=== PATIENT | female | born 1955 | race Caucasian/White ===

== ENCOUNTER 2025-06-03 15:26 | Inpatient (IN) | payer MEDICARE, MEDICAID, SELFPAY ==
[2025-06-03] VITALS (10 sets, daily range): BP systolic 142–187; BP diastolic 79–130; PULSE 70–111; RESP 15–23; TEMP 36.4–36.7; O2SAT 95–99; BMI 33.8; BMI 34.4
--- NOTE | 2025-06-03 15:35 | EDNOTE_ITS ---
ED SOB =RME/HPI General Chief Complaint: Shortness of Breath/Dyspnea Stated Complaint: SOB X 5 days Time Seen by Provider: 06/03/25 15:34 Arrival date/time: 06/03/25 15:26 RME / HPI RME / HPI Narrative: See MDM for Dr. Jo's HPI documentation. Related Data Home Medications ?Medication ?Instructions ?Recorded ?Confirmed aspirin 81 mg tablet,delayed 81 mg PO QDAY 02/20/20 release (Aspir-) atorvastatin 40 mg tablet 20 mg PO QDAY 02/20/2002/19 docusate sodium 100 mg capsule 100 mg PO QDAY 02/20/20 02/20/20 furosemide 40 mg tablet 40 mg PO QDAY 02/20/2002/19 ipratropium 0.5 mg-albuterol 3 mg 3 ml inhalation QID 02/20/20 02/20/20 (2.5 mg base)/3 mL nebulization soln lisinopril 10 mg tablet 10 mg PO QDAY 02/20/2002/19 oxycodone-acetaminophen 5 mg-325 1 tab PO BID 02/20/20 02/20/20 mg tablet spironolactone 25 mg tablet 25 mg PO QDAY 02/20/20 topiramate 25 mg tablet 25 mg PO BID 02/20/20 Previous Rx's ?Medication ?Instructions ?Recorded cyclobenzaprine 5 mg tablet 5 mg PO BID #7 tabs Allergies Allergy/AdvReac Type Severity Reaction Status Date / Time Penicillins Allergy Swelling Verified 06/03/25 15:32 of Lip/Tongue/Throat Review of Systems Review of Systems Systems Reviewed: All systems reviewed, normal except as documented Past Medical History Past Medical History NEUROLOGIC: Positive Neurological Disorders, Cerebrovascular Accident and Transient Ischemic Attacks (TIA) CARDIAC: Positive Cardiac Disorders and Myocardial Infarction RESPIRATORY: Positive Chronic Obstructive Pulmonary Disease (COPD) MUSCULOSKELETAL: Positive Musculoskeletal Disorders Surgical History SURGICAL: Positive Coronary Stent Social History SMOKING STATUS: Former smoker ED Exam Narrative Physical exam: See [facility] for Dr. Jo's physical exam documentation. Course Quality Measures none Orders Category Date Time Status Admit to Inpatient Status Routine Admission 06/03/25 17:55 Active Patient Condition Routine Admission 06/03/25 17:55 Ordered Bedside COVID-19 Antigen Test NOW Care 06/03/25 15:36 Active COVID-19 Screening Questionnaire NOW Care 06/03/25 17:15 Active Continuous Pulse Oximetry QSHIFT Care 06/03/25 17:55 Completed Decision to Admit X1 Care 06/03/25 17:15 Completed EKG (ED ONLY) *Do not use* NOW Care 06/03/25 15:38 Completed Miscellaneous Nursing Order NOW Care 06/03/25 17:55 Active Notify provider NEEDED Care 06/03/25 17:55 Active Saline [Insert IV] NOW Care 06/03/25 15:36 Active Straight [In and Out Catheter] X1 Care 06/03/25 15:36 Active Referral Respiratory Therapy Stat Cons 06/03/25 15:37 Active Diet Cardiac Diet 06/04/25 Breakfast Active CA echo doppler complete Routine Exams 06/03/25 17:58 Ordered EKG (ED Only) Stat Exams 06/03/25 15:38 Draft XR chest 1V portable Stat Exams 06/03/25 15:38 Completed ABG [Arterial Blood Gas] Stat Lab 06/03/25 15:47 Completed BNP [B-Type Natriuretic Peptide] Stat Lab 06/03/25 16:00 Completed Bilirubin,Direct Stat Lab 06/03/25 16:00 Completed Blood Culture (Lab) Stat Lab 06/03/25 16:20 Results CBC AM DRAW Lab 06/04/25 04:50 Completed CBC AM DRAW Lab 06/05/25 05:00 Ordered CBC AM DRAW Lab 06/06/25 05:00 Ordered CBC AM DRAW Lab 06/07/25 05:00 Ordered CBC AM DRAW Lab 06/08/25 05:00 Ordered CBC AM DRAW Lab 06/09/25 05:00 Ordered CBC AM DRAW Lab 06/10/25 05:00 Ordered CBC Stat Lab 06/03/25 16:00 Completed CMP [Comprehensive Metabolic Panel] Stat Lab 06/03/25 16:00 Completed CRP [C-Reactive Protein] Stat Lab 06/03/25 16:00 Completed Comprehensive Metabolic Panel AM DRAW Lab 06/04/25 04:50 Completed Comprehensive Metabolic Panel AM DRAW Lab 06/05/25 05:00 Ordered Comprehensive Metabolic Panel AM DRAW Lab 06/06/25 05:00 Ordered Comprehensive Metabolic Panel AM DRAW Lab 06/07/25 05:00 Ordered Comprehensive Metabolic Panel AM DRAW Lab 06/08/25 05:00 Ordered Comprehensive Metabolic Panel AM DRAW Lab 06/09/25 05:00 Ordered Comprehensive Metabolic Panel AM DRAW Lab 06/10/25 05:00 Ordered D-Dimer Stat Lab 06/03/25 16:00 Completed ESR [Sed Rate (ESR)] Stat Lab 06/03/25 16:00 Completed Free T4 (Free Thyroxine) AM DRAW Lab 06/04/25 04:50 Completed Hemoglobin A1C [Glycohemoglobin w (eAG)] Stat Lab 06/03/25 16:00 Completed Influenza A & B Rapid Panel Stat Lab 06/03/25 16:50 Completed Lactate (Lactic Acid) Stat Lab 06/03/25 16:00 Completed Lipase Stat Lab 06/03/25 16:00 Completed Lipid Panel AM DRAW Lab 06/04/25 04:50 Completed Magnesium AM DRAW Lab 06/04/25 04:50 Completed Magnesium AM DRAW Lab 06/05/25 05:00 Ordered Magnesium AM DRAW Lab 06/06/25 05:00 Ordered Magnesium AM DRAW Lab 06/07/25 05:00 Ordered Magnesium AM DRAW Lab 06/08/25 05:00 Ordered Magnesium AM DRAW Lab 06/09/25 05:00 Ordered Magnesium AM DRAW Lab 06/10/25 05:00 Ordered Magnesium Stat Lab 06/03/25 16:00 Completed Partial Thromboplastin Time AM DRAW Lab 06/04/25 04:50 Completed Phosphorous AM DRAW Lab 06/04/25 04:50 Completed Procalcitonin Stat Lab 06/03/25 16:00 Completed Prothrombin Time with INR AM DRAW Lab 06/04/25 04:50 Completed TSH [Thyroid Stimulating Hormone] Stat Lab 06/03/25 16:00 Completed Troponin I Stat Lab 06/03/25 16:00 Completed UA, C/S IF [Urinalysis, C/S if Indicated] Stat Lab 06/03/25 06:18 Completed Acetaminophen Tab [Tylenol Tab] Med 06/03/25 17:55 Active 650 mg PO Q6H PRN Albuterol/Ipratr Rt Analisa [Duoneb Rt Analisa] Med 06/03/25 15:37 Discontinued 2.5 ml INH X1 ONE Albuterol/Ipratr Rt Analisa [Duoneb Rt Analisa] Med 06/03/25 15:45 Discontinued 3 ml INH X1 ONE Azithromycin Inj [Zithromax Inj] 500 mg Med 06/03/25 17:14 Discontinued Sodium Chloride 0.9% 250 ml [Ns] 250 ml IV X1 DiphenhydrAMINE INJ [Benadryl Inj] Med 06/03/25 15:37 Discontinued 50 mg IVP X1 STA Furosemide Inj [Lasix Inj] Med 06/03/25 16:12 Discontinued 80 mg IVP X1 ONE Levalbuterol Rt [Xopenex Rt Analisa] Med 06/03/25 15:37 Discontinued 3.75 mg INH X1 ONE Magnesium Sulfate 2 GM Ivpb [Magnesium Sulfate Ivpb] Med 06/03/25 15:37 Discontinued 2 gm in 50 ml IV X1 Magnesium Sulfate 2 GM Ivpb [Magnesium Sulfate Ivpb] Med 06/03/25 15:57 Discontinued 2 gm in 50 ml IV X1 MethylPREDNISolone.* [SoluMEDROL Inj] Med 06/03/25 15:37 Discontinued 250 mg IVP X1 ONE Metoprolol Tartrate [Lopressor] Med 06/03/25 15:47 Discontinued 25 mg PO X1 ONE Morphine* Inj Med 06/03/25 16:12 Discontinued 2 mg IV X1 ONE Ondansetron Inj [Zofran Inj] Med 06/03/25 17:55 Active 4 mg IVP Q6H PRN Senna [Senokot] Med 06/03/25 17:55 Discontinued 1 tab PO QDAY PRN Sodium Chloride Rt Analisa 0.9% [NS Rt Analisa 0.9%] Med 06/03/25 15:37 Active 9 ml INH PRN PRN cefTRIAXone/D5w 1gm IV premix [Rocephin/D5w 1gm IV Med 06/03/25 17:14 Discontinued premix] 1 gm in 50 ml IV X1 Code Status Routine Oth 06/03/25 17:55 Ordered BiPAP / CPAP NOW RT 06/03/25 15:36 Active Oxygen Delivery NOW RT 06/03/25 17:55 Active Vital Signs Vital signs: Vital Signs Pulse Rate 111 H 06/03/25 15:40 Respiratory Rate 23 H 06/03/25 15:40 Blood Pressure 164/117 H 06/03/25 15:40 Pulse Oximetry (%) 95 06/03/25 15:40 Oxygen Delivery Method Room Air 06/03/25 15:40 Pulse ox is 95% on room air which is adequate. Shortness of Breath / Dyspnea MDM Narrative MDM Narrative:: This section includes all my notes and documentations, including HPI, PE, and ED course. Amarjit Jo MD HPI: 70-year-old female here with about a week history of worsening cough, productive cough, purulent sputum, and dyspnea. Has COPD and CHF. No fever. No other complaints. ROS: All negative except as documented in HPI. Physical Exam: General: Alert and oriented. In severe respiratory distress. Hypoxia noted. Eyes: Conjunctivae and lids clear. ENT: No nasal congestion. Pharynx normal. Tympanic membrane normal bilaterally. Neck: Supple. No JVD. Heart: RRR. Lungs: In severe respiratory distress. Severely decreased air movement with diffuse wheezing. Abdomen: Soft and nontender. Legs: No clubbing, cyanosis, edema. Skin: Warm and dry. Neuro: Alert and oriented X 3. I reviewed all diagnostic test results: My interpretation of the EKG is: Sinus rhythm (66 bpm) with PVCs and nonspecific ST-T changes. My interpretation of the chest x-ray is: NAD. Blood tests and urine tests unremarkable. Covid/Influenza are negative. At this point, diagnoses include: Acute respiratory failure with hypoxia COPD exacerbation CHF Treatment here included: Solumedrol 250 mg IV DuoNeb X 1 Xopenex 7.5 mg neb treatment Benadryl 50 mg IV Magnesium 2 gram IV Lasix 80 mg IV Morphine 2 mg IV No significant improvement noted. I discussed the case with our hospitalist. About the presentation and exam and diagnostics and treatments here. And need of further care in the hospital. Will accept the patient. Amarjit Jo MD Patient data External records reviewed:: [facility] previous records Clinical information provided by:: patient Social determinants that could affect healthcare access:: none Patient has the following chronic illnesses:: COPD How is presenting disease/condition affected by chronic disease/condition?: exacerbated by Evaluation data The following diagnostics were reviewed and interpreted by me:: lab results, radiology exam(s) and EKG tracing(s) (My interpretation of the EKG is: Sinus tachycardia (66 bpm) with PVCs and nonspecific ST-T changes. Amarjit Jo MD) Lab and/or radiology exams considered but not ordered:: None Interpretation Summary: I reviewed all diagnostic test results: My interpretation of the EKG is: Sinus rhythm (66 bpm) with PVCs and nonspecific ST-T changes. My interpretation of the chest x-ray is: NAD. Blood tests and urine tests unremarkable. Covid/Influenza are negative. Medications / Prescriptions Medications or Prescriptions considered but not ordered:: None Medication administrations:: Medication Administration History Acetaminophen (Acetaminophen 325 Mg Tablet) 650 mg PO Q6H PRN PRN Reason: Fever >100.4 or pain Stop: 07/03/25 17:54 Last Admin: 06/04/25 13:34 Dose: 650 mg Documented By: KWAME Albuterol/Ipratropium (Albuterol/Ipratropium (Duoneb) Rt Analisa 3 Ml Nebu) 3 ml INH Q4HRRT PRN PRN Reason: SHORTNESS OF BREATH Stop: 07/04/25 18:59 Apixaban (Apixaban 2.5 Mg Tablet) 5 mg PO BID [facility] Stop: 06/24/25 20:59 Last Admin: 06/04/25 21:07 Dose: 5 mg Documented By: Admin: 06/04/25 09:11 Dose: 5 mg Documented By: Admin: 06/03/25 21:05 Dose: 5 mg Documented By: KEY Dextrose (Dextrose 50%-Water Inj 50 Ml Syringe) 25 ml IV Q15MIN PRN PRN Reason: BG 50-70 responsive npo pt Stop: 07/03/25 18:38 Dextrose (Dextrose 50%-Water Inj 50 Ml Syringe) 50 ml IV Q15MIN PRN PRN Reason: BG <50 OR BG <70 & pt unresponsive Stop: 07/03/25 18:38 Furosemide (Furosemide Inj 10 Mg/Ml Vial 2 Ml) 40 mg IVP QDAY [facility] Stop: 07/04/25 08:59 Last Admin: 06/04/25 09:10 Dose: 40 mg Documented By: KWAME Glucagon (Glucagon Inj 1 Mg Vial) 1 mg IM Q15MIN PRN PRN Reason: BG <70, and no IV access Hydralazine HCl (Hydralazine Inj 20 Mg/Ml Vial) 10 mg IVP Q2H PRN PRN Reason: SBP >180 or DSP >110 Stop: 07/03/25 18:44 Last Admin: 06/03/25 18:49 Dose: 10 mg Documented By: EF Azithromycin 500 mg/ Sodium (Chloride) 250 mls @ 250 mls/hr IV QDAY@1400 [facility] Stop: 06/11/25 13:59 Last Admin: 06/04/25 15:45 Dose: 250 mls/hr Documented By: KWAME Ceftriaxone Sodium/Dextrose (Rocephin/D5w 1gm Iv Premix) 1 gm in 50 mls @ 100 mls/hr IV QDAY [facility] Stop: 06/11/25 13:02 Last Admin: 06/04/25 13:34 Dose: 100 mls/hr Documented By: LH Insulin Human Lispro (Insulin Lispro (Admelog) 1 Unit/0.01 Ml Unit) 0 [address] [facility]; Protocol Stop: 07/04/25 07:29 Last Admin: 06/04/25 17:48 Dose: 2 unit Documented By: KWAME Co-signed By: ARIES Admin: 06/04/25 12:23 Dose: 4 unit Documented By: KWAME Co-signed By: PP Admin: 06/04/25 09:11 Dose: 1 unit Documented By: KWAME Co-signed By: ARIES Methylprednisolone Sodium Succinate (Methylprednisolone Sod Succ 40 Mg/Ml Vial) 40 mg IVP TID [facility] Stop: 06/11/25 13:59 Last Admin: 06/04/25 21:07 Dose: 40 mg Documented By: Admin: 06/04/25 15:44 Dose: 40 mg Documented By: KWAME Nifedipine (Nifedipine Xl 30 Mg Tabcr) 30 mg PO QDAY [facility] Stop: 07/04/25 08:59 Last Admin: 06/04/25 09:10 Dose: 30 mg Documented By: KWAME Ondansetron HCl (Ondansetron Inj 2 Mg/Ml Inj 2 Ml) 4 mg IVP Q6H PRN; Protocol PRN Reason: NAUSEA OR VOMITING Stop: 07/03/25 17:54 Pantoprazole Sodium (Pantoprazole Inj 40 Mg Vial) 40 mg IVP QDAY [facility] Stop: 07/04/25 08:59 Last Admin: 06/04/25 09:11 Dose: 40 mg Documented By: KWAME Sennosides (Senna/Docusate Sod 1 Tab Tablet) 1 tab PO QDAY PRN; Protocol PRN Reason: CONSTIPATION Stop: 07/05/25 08:59 Sodium Chloride (Sodium Chloride Rt Analisa 0.9% 3 Ml Nebu) 9 ml INH PRN PRN PRN Reason: SOLN Stop: 07/03/25 15:36 Discontinued Medications Albuterol/Ipratropium (Albuterol/Ipratropium (Duoneb) Rt Analisa 3 Ml Nebu) 2.5 ml INH X1 ONE Stop: 06/03/25 15:38 Last Admin: 06/03/25 16:51 Dose: 2.5 ml Documented By: YONY Albuterol/Ipratropium (Albuterol/Ipratropium (Duoneb) Rt Analisa 3 Ml Nebu) 3 ml INH X1 ONE Stop: 06/03/25 15:46 Last Admin: 06/03/25 16:55 Dose: Not Given Documented By: YONY Non-Admin Reason: MD ordered Wrong Albuterol/Ipratropium (Albuterol/Ipratropium (Duoneb) Rt Analisa 3 Ml Nebu) 3 ml INH Q6HRRT KELSEY Stop: 07/03/25 18:59 Albuterol/Ipratropium (Albuterol/Ipratropium (Duoneb) Rt Analisa 3 Ml Nebu) 3 ml INH Q2HR PRN PRN Reason: SHORTNESS OF BREATH OR WHEEZE Stop: 07/03/25 18:00 Albuterol/Ipratropium (Albuterol/Ipratropium (Duoneb) Rt Analisa 3 Ml Nebu) 3 ml INH Q4HRRT KELSEY Stop: 07/03/25 18:59 Last Admin: 06/04/25 17:34 Dose: Not Given Documented By: DELIO Non-Admin Reason: Discontinued Admin: 06/04/25 11:39 Dose: 3 ml Documented By: Admin: 06/04/25 06:54 Dose: 3 ml Documented By: Admin: 06/04/25 03:15 Dose: Not Given Documented By: DELIO Non-Admin Reason: Patient Refused Admin: 06/04/25 00:55 Dose: Not Given Documented By: DELIO Non-Admin Reason: Patient Refused Admin: 06/03/25 18:57 Dose: 3 ml Documented By: DELIO Diphenhydramine HCl (Diphenhydramine Inj 50 Mg/Ml Vial) 50 mg IVP X1 STA Stop: 06/03/25 15:38 Last Admin: 06/03/25 16:00 Dose: 50 mg Documented By: EF Furosemide (Furosemide Inj 10 Mg/Ml 4ml Vial) 80 mg IVP X1 ONE Stop: 06/03/25 16:13 Last Admin: 06/03/25 16:38 Dose: 80 mg Documented By: EF Furosemide (Furosemide Inj 10 Mg/Ml Vial 2 Ml) 40 mg IVP BIDD [facility] Stop: 07/04/25 05:59 Magnesium Sulfate (Magnesium Sulfate Ivpb) 2 gm in 50 mls @ 25 mls/hr IV X1 ONE Stop: 06/03/25 17:36 Last Admin: 06/03/25 15:59 Dose: Not Given Documented By: EF Non-Admin Reason: Cancelled by Provider Magnesium Sulfate (Magnesium Sulfate Ivpb) 2 gm in 50 mls @ 150 mls/hr IV X1 ONE Stop: 06/03/25 16:16 Last Infusion: 06/03/25 16:20 Dose: Infused Documented By: Admin: 06/03/25 16:00 Dose: 150 mls/hr Documented By: EF Azithromycin 500 mg/ Sodium (Chloride) 250 mls @ 250 mls/hr IV X1 ONE Stop: 06/03/25 18:13 Last Infusion: 06/03/25 18:44 Dose: Infused Documented By: Admin: 06/03/25 17:32 Dose: 250 mls/hr Documented By: EF Ceftriaxone Sodium/Dextrose (Rocephin/D5w 1gm Iv Premix) 1 gm in 50 mls @ 100 mls/hr IV X1 ONE Stop: 06/03/25 17:43 Last Infusion: 06/03/25 18:02 Dose: Infused Documented By: Admin: 06/03/25 17:32 Dose: 100 mls/hr Documented By: EF Lactated Ringer's (Lactated Ringers) 500 mls @ 75 mls/hr IV .Q6H40M [facility] Stop: 06/04/25 05:09 Last Admin: 06/03/25 22:50 Dose: 75 mls/hr Documented By: CG Influenza Virus Vaccine Quadrival (Influenza Virus 0.5 Ml Syringe ) 0.5 ml IMi .ONCE ONE Stop: 06/04/25 10:01 Labetalol HCl (Labetalol Inj 5 Mg/Ml Vial 20 Ml) 10 mg IVP Q2H PRN PRN Reason: SBP >180 Stop: 07/03/25 18:14 Lactulose (Lactulose Syrup 20 Gm/30 Ml Udc) 30 gm PO X1 ONE; Protocol Stop: 06/04/25 11:18 Last Admin: 06/04/25 12:23 Dose: 30 gm Documented By: LH Levalbuterol HCl (Levalbuterol Rt 1.25 Mg/0.5 Ml Nebu) 3.75 mg INH X1 ONE Stop: 06/03/25 15:38 Last Admin: 06/03/25 16:50 Dose: 3.75 mg Documented By: BA Methylprednisolone Sodium Succinate (Methylprednisolone Sod Succ 62.5 Mg/Ml 2ml Vial) 250 mg IVP X1 ONE Stop: 06/03/25 15:38 Last Admin: 06/03/25 16:00 Dose: 250 mg Documented By: EF Methylprednisolone Sodium Succinate (Methylprednisolone Sod Succ 40 Mg/Ml Vial) 40 mg IVP BID [facility] Stop: 06/10/25 20:59 Last Admin: 06/04/25 09:08 Dose: 40 mg Documented By: Admin: 06/03/25 21:05 Dose: 40 mg Documented By: BD Metoprolol Tartrate (Metoprolol Tartrate 25 Mg Tablet) 25 mg PO X1 ONE Stop: 06/03/25 15:48 Last Admin: 06/03/25 16:38 Dose: 25 mg Documented By: EF Morphine Sulfate (Morphine Sulf Inj 4 Mg/Ml Vial) 2 mg IV X1 ONE Stop: 06/03/25 16:13 Last Admin: 06/03/25 16:39 Dose: 2 mg Documented By: EF Potassium Chloride (Potassium Chloride 20 Meq Tabcr) 40 meq PO X1 ONE Stop: 06/04/25 08:55 Last Admin: 06/04/25 09:11 Dose: 40 meq Documented By: LH Potassium Chloride (Potassium Chloride 20 Meq Tabcr) 40 meq PO X1 ONE Stop: 06/04/25 17:21 Last Admin: 06/04/25 17:48 Dose: 40 meq Documented By: LH Prednisone (Prednisone 20 Mg Tablet) 40 mg PO QDAY [facility] Stop: 06/10/25 18:03 Sacubitril/Valsartan (Sacubitril 24 Mg/Valsartan 26 Mg Tablet) 1 tab PO BID [facility] Stop: 07/03/25 20:59 Sennosides (Senna Tablet) 1 tab PO QDAY PRN; Protocol PRN Reason: constipation Stop: 07/03/25 17:54 Treatment here included: Solumedrol 250 mg IV DuoNeb X 1 Xopenex 7.5 mg neb treatment Benadryl 50 mg IV Magnesium 2 gram IV Lasix 80 mg IV Morphine 2 mg IV Consultations Consultation(s) initiated? (list below): Yes Consultation #1 (Physician, Specialty, Details): I discussed the case with our hospitalist. About the presentation and exam and diagnostics and treatments here. And need of further care in the hospital. Will accept the patient. Diagnosis Shortness of Breath Differential Diagnosis: acute exacerbation of chronic obstructive airways disease, congestive heart failure and community acquired pneumonia Most likely diagnosis given after review of the tests above:: Acute respiratory failure COPD exacerbation CHF Admission Indicated Admission indicated?: indicated Explain why admission is indicated or not indicated:: Acute respiratory failure COPD exacerbation CHF Admission Request Was there a request for admission?: Yes Admission Attestation Admission request attestation: Discussed case with Hospitalist service regarding admission. Discussed patients ED course, exam findings, labs, and radiology results. Agreed to accept the patient for admission. Disposition Plan Disposition Plan: Admit Discharge Plan Plan Patient Disposition: Admit Acute Care w/in Hospital Problem List Clinical Impression: Acute respiratory failure with hypoxia, COPD exacerbation, CHF (congestive heart failure)
--- NOTE | 2025-06-03 15:38 | EKG_ITS ---
[facility] Test Date: 2025-06-03 Pat Name: ALLISON WALLER Department: Room: - Gender: Female Behavioral [facility] Rn: : 1955 Requested By: Amarjit Agudelo Order Number: [id number] Reading MD: Amarjit Agudelo Measurements Intervals [place] Rate: 113 P: 55 ID: [id number] QRS: 11 QRSD: 127 T: 190 QT: 330 QTc: 453 Interpretive Statements SINUS TACHYCARDIA WITH OCCASIONAL VENTRICULAR PREMATURE COMPLEXES MODERATE INTRAVENTRICULAR CONDUCTION DELAY [105+ ms QRS DURATION, 80+ ms Q/S IN V1/V2, NO Q AND 60+ ms R IN I/aVL/V5/V6] ST DEVIATION AND MODERATE T-WAVE ABNORMALITY, CONSIDER LATERAL ISCHEMIA [-0.1+ mV T-WAVE IN I/aVL/V5/V6] ST DEVIATION AND MODERATE T-WAVE ABNORMALITY, CONSIDER INFERIOR ISCHEMIA [-0.1+ mV T-WAVE IN II/aVF] Compared to ECG 02/20/2020 15:10:54 Ventricular premature complex(es) now present Sinus bradycardia no longer present T-wave abnormality still present Possible ischemia still present /store/S0/[id number]/ecg/[id number].pdf
--- NOTE | 2025-06-03 15:38 | XR_ITS ---
Examination: AP chest single view TECHNIQUE: AP portable upright chest single view Date and time: June 03, 2025, 1547 hours INDICATIONS: Shortness of breath chest pain today. FINDINGS: Mild enlargement cardiac contour Ectatic thoracic aorta. No pneumonia or pulmonary edema IMPRESSION: No active disease
[2025-06-03 15:54] LABS: Base Excess -1 (-3-3); HCO3 23 mEq/L (20-26); Inspired Oxygen, FIO2 21 %; O2 Saturation 95 % (91-98); PCO2 35 mmHg (32.0-48.0); PO2 70 mmHg (83-108); pH, Arterial 7.42 (7.35-7.45)
[2025-06-03] MEDS: MethylPREDNISolone SOD SUCC 62.5 MG/ML 2ML VIAL 250 MG IVP (16:00)
[2025-06-03] MEDS: Magnesium Sulfate 2 GM Ivpb 2 GM/50 ML BAG IV (16:00)
[2025-06-03 16:12] LABS: Allen Test Performed/OK; Puncture Site Right Radial
[2025-06-03 16:15] LABS: Lactate (Lactic Acid) 2.7 mMol/L (0.4-2.0)
[2025-06-03 16:21] LABS: Sed Rate (ESR) 29 mm/hr (0-30)
[2025-06-03 16:24] LABS: Basophils # (Auto) 0.1 Thou/mm3 (0.0-0.2); Basophils % (Auto) 1 % (0-2.5); Eosinophils # (Auto) 0.2 Thou/mm3 (0.0-0.5); Eosinophils % (Auto) 3 % (0-10); Hematocrit 47.3 % (36.0-46.0); Hemoglobin 16.3 g/dL (12.0-16.0); Immature Granulocytes Auto 0.01 Thou/mm3 (0.00-0.00); Lymphocytes # (Auto) 2.2 Thou/mm3 (1.0-4.8); Lymphocytes % (Auto) 30 % (10-50); Mean Corpuscular HGB Conc 34.5 g/dl (31.0-37.0); Mean Corpuscular Hemoglobin 32.2 pg (25.0-35.0); Mean Corpuscular Volume 94 fL (80-100); Monocytes # (Auto) 0.6 Thou/mm3 (0.0-0.8); Monocytes % (Auto) 8 % (0-12); Neutrophils # (Auto) 4.2 Thou/mm3 (1.8-7.7); Neutrophils % (Auto) 58 % (37-80); Nucleated Red Blood Cell # 0.00 Thou/mm3 (0.00-0.00); Nucleated Red Blood Cell % 0 /100 WBC (0); Platelet Count 319 Thou/mm3 (140-440); RDW Standard Deviation 44.3 fL (36.4-46.3); Red Blood Count 5.06 Miln/mm3 (4.00-5.20); White Blood Count 7.2 Thou/mm3 (3.6-11.0)
[2025-06-03] MEDS: FUROSEMIDE INJ 10 MG/ML 4ML VIAL 80 MG IVP (16:38)
[2025-06-03] MEDS: METOPROLOL TARTRATE 25 MG TABLET PO (16:38)
[2025-06-03] MEDS: MORPHINE SULF INJ 4 MG/ML VIAL 2 MG IV (16:39)
[2025-06-03 16:40] LABS: Glucose Estimated Average 103 mg/dL (80-131); Hemoglobin A1C 5.2 % Hgb (4.8-6.0)
[2025-06-03 16:49] LABS: D-Dimer 470 ng/mL (<600)
[2025-06-03] MEDS: LEVALBUTEROL RT 1.25 MG/0.5 ML NEBU 3.75 MG INH (16:50)
[2025-06-03] MEDS: ALBUTEROL/IPRATROPIUM (Duoneb) RT SOL 3 ML NEBU 2.5 ML INH (16:51)
[2025-06-03 17:02] LABS: B-Type Natriuretic Peptide 142 pg/mL (0-100)
[2025-06-03 17:07] LABS: Alanine Aminotransferase 8 U/L (10-49); Albumin, Serum 5.1 gm/dL (3.4-4.8); Albumin/Globulin Ratio 2.0 (1.2-2.2); Alkaline Phosphatase 112 U/L (46-116); Anion Gap 15 (7-16); Aspartate Amino Transferase 19 U/L (0-34); BUN/Creatinine Ratio 11 Ratio (12-20); Bilirubin,Direct 0.2 mg/dL (0.0-0.3); Bilirubin,Total 0.6 mg/dL (0.3-1.2); Blood Urea Nitrogen 28 mg/dL (9-23); C-Reactive Protein 2.9 mg/dL (0.0-0.9); Calcium 9.9 mg/dL (8.3-10.6); Calcium (Corrected) 9.9 mg/dL (8.5-10.1); Carbon Dioxide 21.7 mMol/L (20.0-31.0); Chloride 103 mMol/L (98-107); Creatinine (Component) 2.5 mg/dL (0.6-1.3); Estimated Creatinine Clearance 21.0 mL/min (>60); Globulin 2.5 gm/dL (2.3-3.5); Glucose 226 mg/dL (74-106); Lipase 34 U/L (12-53); Magnesium 2.0 mg/dL (1.6-2.6); Osmolality,Calculated 291 (275-295); Potassium 3.4 mMol/L (3.4-5.1); Procalcitonin 0.17 ng/ml (0.0-0.49); Sodium 140 mMol/L (136-145); Thyroid Stimulating Hormone 2.12 uIU/mL (0.55-4.78); Total Protein 7.6 gm/dL (5.7-8.2); Troponin I < 0.020 ng/mL (0.0-0.045); eGFR 20 See Note
[2025-06-03 17:16] LABS: Influenza A Ag Negative; Influenza B Ag Negative
[2025-06-03] MEDS: AZITHROMYCIN INJ 500 MG in SODIUM CHLORIDE 0.9% 250 ML 250 ML 250 MG IV (17:32)
[2025-06-03] MEDS: cefTRIAXone/D5w 1gm IV premix 1 GM/50 ML BAG IV (17:32)
--- NOTE | 2025-06-03 17:58 | ECHO_ITS ---
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 - Primary Location: S3SX Left Ventricular Outflow Tract Name Value Normal LVOT 2D LVOT Diameter 1.5 cm LVOT Doppler LVOT Peak Velocity 84 cm/s LVOT Mean Gradient 1 mmHg LVOT VTI 15 cm LVOT VTI/AV VTI Ratio 0.7 LVOT Stroke Volume 26 ml Mitral Valve Name Value Normal MV Doppler MV Decel Cooke 320 cm/s2 MV PHT 69 ms MV Area (PHT) 3.2 cm2 4.0-5.0 MV Diastolic Function MV E Peak Velocity 77 cm/s MV A Peak Velocity 101 cm/s MV E/A 0.8 MV Annular TDI MV Septal e' Velocity 5.2 cm/s MV E/e' (Septal) 14.7 MV Lateral e' Velocity 3.9 cm/s MV E/e' (Lateral) 19.5 MV e' Average 4.57 cm/s MV E/e' (Average) 17.1 Tricuspid Valve Name Value Normal TV Annular TDI TV Lateral Keely s' Velocity 9.8 cm/s >=9.5 Aortic Valve Name Value Normal AV Doppler AV Peak Velocity 108 cm/s AV Mean Gradient 2 mmHg AV VTI 21 cm AV Area (Cont Eq VTI) 1.2 cm2 >=3.0 AV Area (Cont Eq Marvin) 1.4 cm2 AV DI (Marvin) 0.77 AV Regurgitation 2D LVOT Area 1.8 cm2 Ventricles Name Value Normal LV Dimensions 2D/MM IVS Diastolic Thickness (2D) 0.7 cm 0.6-0.9 LVID Diastole (2D) 5.2 cm 3.8-5.2 LVIW Diastolic Thickness (2D) 1.0 cm 0.6-0.9 LVID Systole (2D) 4.5 cm 2.2-3.5 LVOT Diameter 1.5 cm LV Mass (2D Cubed) 156.93 g 67.00-162.00 LV Mass Index (2D Cubed) 80 g/m2 43-95 Relative Wall Thickness (2D) 0.38 <=0.42 IVS/LVIW Diastolic Thickness (2D) 0.70 0.00-1.50 LV Fractional Shortening/Ejection Fraction 2D/MM LV Fractional Shortening (2D) 13 % 27-45 LV EF (2D Teichholz) 29 % LV Diastolic Volume (4C MOD) 83 ml LV EF (4C MOD) 31 % LV Diastolic Volume (2C MOD) 117 ml LV EF (2C MOD) 17 % LV Diastolic Volume (BP MOD) 109 ml 46-106 LV Diastolic Volume Index (BP MOD) 56 ml/m2 29-61 LV Systolic Volume (BP MOD) 77 ml 14-42 LV Systolic Volume Index (BP MOD) 39 ml/m2 8-24 LV EF (BP MOD) 29 % 54-74 LV Diastolic Length (4C) 5.8 cm LV Systolic Length (4C) 5.6 cm LV Stroke Volume (4C MOD) 25 ml RV Dimensions 2D/MM TV Lateral Keely s' Velocity 9.8 cm/s >=9.5 Atria Name Value Normal LA Dimensions LA Volume (4C A-L) 40 ml LA Volume (BP A-L) 39 ml Left Ventricle Left ventricular chamber dimension is mildly enlarged. Left ventricular systolic function is moderately reduced with an ejection fraction by Biplane Method of Discs of 29 %. There is normal geometry noted in the left ventricle. Left ventricular segmental wall motion is normal. There is indeterminate diastolic function in the left ventricle. Right Ventricle Right ventricular chamber dimension is normal. Right ventricular systolic function is normal. Left Atrium Left atrial chamber dimension is normal. Right Atrium Right atrial chamber dimension is normal. Aortic Valve There is no aortic valve sclerosis. There is no aortic valve stenosis with a peak velocity of 108 cm/s, mean gradient of 2 mmHg, and aortic valve area of 1.2 cm2. There is no aortic valve regurgitation. The aortic valve was not clearly visualized. Pulmonic Valve The pulmonic valve is normal. There is no pulmonic valve stenosis. There is no pulmonic regurgitation. Mitral Valve The mitral valve has normal leaflets. There is no mitral valve stenosis. There is trace mitral valve regurgitation. Tricuspid Valve The tricuspid valve leaflets are normal. There is no tricuspid valve stenosis. There is trace tricuspid valve regurgitation. Unable to estimate pulmonary artery systolic pressure due to inadequate tricuspid regurgitant envelope. Pericardium/Pleural The pericardium appears normal. There is no pericardial effusion. No pleural effusion visualized. Aorta The aortic measurements are indexed to age and body surface area. Summary 1. Left ventricle size is mildly enlarged and systolic function is moderately reduced. Estimated ejection fraction is 35-40%. There is indeterminate diastolic function. There is normal geometry noted. 2. Normal right ventricular size and function. 3. There is trace mitral valve regurgitation. 4. There is trace tricuspid valve regurgitation. Report Signatures Finalized by Anish Mckee on 06/05/2025 02:26 PM
--- NOTE | 2025-06-03 18:11 | PD.RESHP ---
Documentation for date of: 06/03/25 Senior resident attestation: Patient evaluated and examined at the bedside, plan of care discussed with rest of the team including my attending physician, except as noted. Pt is a 75-year-old female with a past medical history of CAD s/p stents, COPD, CHF, CKD, hypertension, history of pulmonary embolism and DVT on Eliquis, who presents to the ER with acute respiratory distress, patient reported she had been having dyspnea for the past 4 to 5 days, [place], but came in when shortness of breath became unbearable. 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 Patient endorses gradual worsening shortness of breath to the point where she felt as if she was gasping for air, prompting current ED admission. Patient reports that she has had COPD exacerbations before however remote and does not use any rescue inhalers or daily inhalers. Patient also endorses central chest tightness rated 6/10 that started 3 days ago, nonradiating dull constant pain, along with bilateral rib pain when coughing or taking deep breaths. Patient reports has history of heart failure last echo done 8 years ago in [place], can only recall taking Entresto as one of her heart medications. Endorses PND for the past few days, denies dyspnea on exertion, orthopnea or PND prior to current ED visit. Sees Dr. Whaley, product technician in [place] within this year. Patient reports numerous DVTs and PEs over the course of her lifetime and states she likely has some genetic clotting issue as her son and her mother have clotting issues. Denies any recent illness, diarrhea, urinary symptoms, nausea/vomiting, fever/chills or abdominal pain. Reports has been constipated for the past 4 days which is unusual for her. PMHx: as above Surgical Hx: Hysterectomy 1998, C2-C5 surgery FHx: Mother clotting issues, from CHF, 3 uncles from cardiac arrest Social Hx: 30 PPD smoker, 60 years half a pack a day quit 1 week ago. Denies alcohol use. Remote illicit drug use, only smoking no IV drug use. At baseline IADL walks without walker[place] Allergies: Penicillin, swelling of lips Medications: Per med rec, instructed to bring medication list In ED, BP 164/117, HR 111, RR 23, afebrile, saturating 95% 3L. Significant labs include hemoglobin 16.3, ABG 7.4 /70/23, BUN 28, creatinine 2.5, GFR 20, A1c 5.2, lactic acid 2.7, tropes negative, CRP 2.9, BNP 142. In ED, given magnesium, Methylpred to 50 mg x 1, metoprolol to tartrate 25 mg x 1, furosemide 80 mg x 1, morphine 2 mg x 1, DuoNeb and levalbuterol x 1 each, azithromycin x 1 and ceftriaxone x 1. EKG shows sinus tachycardia with occasional PVCs rate 113 QTc 453. CXR read pending. Patient was admitted for COPD and CHF exacerbation. Review of Systems Review of Systems Systems Reviewed: All systems reviewed, normal except as documented Exam Vital Signs Temp Pulse Resp BP Pulse Ox O2 Del Method O2 Flow Rate 97.8 F 93 15 178/108 H 97 Nasal Cannula 3 06/03/25 18:00 06/03/25 18:00 06/03/25 18:00 06/03/25 18:00 06/03/25 18:00 06/03/25 18:00 06/03/25 18:00 Narrative Exam GENERAL: AOx3, no acute distress HEENT: mucous membranes dry, bilateral sclera anicteric CARDIOVASCULAR: regular rate and rhythm, S1/S2 present, no murmurs appreciated PULMONARY: Diffuse wheezing bilaterally, wet crackles at bilateral bases ABDOMINAL: soft, non-tender, non-distended, no rebound/guarding, bowel sounds present EXTREMITIES: no peripheral edema SKIN: warm and dry, intact, no rashes NEURO: CN II-XII grossly intact, no focal deficits, alert, following commands Results: Labs 06/03/25 16:00 06/03/25 16:00 Labs: Short CBC 06/03/25 Range/Units 16:00 WBC 7.2 (3.6-11.0) Thou/mm3 Hgb 16.3 H (12.0-16.0) g/dL Hct 47.3 H (36.0-46.0) % Plt Count 319 (140-440) Thou/mm3 BMP 06/03/25 16:00 Sodium 140 Potassium 3.4 Chloride 103 Carbon Dioxide 21.7 BUN 28 H Creatinine 2.5 H Glucose 226 H Calcium 9.9 Cardiac Enzymes 06/03/25 Range/Units 16:00 Troponin I < 0.020 (0.0-0.045) ng/mL Liver Function 06/03/25 Range/Units 16:00 Total Bilirubin 0.6 (0.3-1.2) mg/dL Direct Bilirubin 0.2 (0.0-0.3) mg/dL AST 19 (0-34) U/L ALT 8 L (10-49) U/L Alkaline Phosphatase 112 (46-116) U/L Albumin 5.1 H (3.4-4.8) gm/dL ABG Interpretation ABG results: 06/03/25 15:47 ABG pH 7.42 ABG pCO2 35 ABG pO2 70 L ABG HCO3 23 ABG O2 Saturation 95 ABG Base Excess -1 Quality Measures Quality Measures none Advance care planning discussed with:: patient Medications Home Medications and Allergies Home Medications ?Medication ?Instructions ?Recorded ?Confirmed ?Type aspirin 81 mg tablet,delayed 81 mg PO QDAY 02/20/20 02/20/20 History release (Aspir-) atorvastatin 40 mg tablet 20 mg PO QDAY 02/20/20 02/20/20 History docusate sodium 100 mg capsule 100 mg PO QDAY 02/20/20 02/20/20 History furosemide 40 mg tablet 40 mg PO QDAY 02/20/20 02/20/20 History ipratropium 0.5 mg-albuterol 3 mg 3 ml inhalation QID 02/20/20 02/20/20 History (2.5 mg base)/3 mL nebulization soln lisinopril 10 mg tablet 10 mg PO QDAY 02/20/20 02/20/20 History oxycodone-acetaminophen 5 mg-325 1 tab PO BID 02/20/20 02/20/20 History mg tablet spironolactone 25 mg tablet 25 mg PO QDAY 02/20/20 02/20/20 History topiramate 25 mg tablet 25 mg PO BID 02/20/20 02/20/20 History Allergies Allergy/AdvReac Type Severity Reaction Status Date / Time Penicillins Allergy Swelling Verified 06/03/25 15:32 of Lip/Tongue/Throat Visit Medications Acetaminophen (Acetaminophen 325 Mg Tablet) 650 mg PO Q6H PRN PRN Reason: Fever >100.4 or pain Stop: 07/03/25 17:54 Albuterol/Ipratropium (Albuterol/Ipratropium (Duoneb) Rt Analisa 3 Ml Nebu) 3 ml INH Q6HRRT KELSEY Stop: 07/03/25 18:59 Albuterol/Ipratropium (Albuterol/Ipratropium (Duoneb) Rt Analisa 3 Ml Nebu) 3 ml INH Q2HR PRN PRN Reason: SHORTNESS OF BREATH OR WHEEZE Stop: 07/03/25 18:00 Apixaban (Apixaban 2.5 Mg Tablet) 5 mg PO BID [facility] Stop: 06/24/25 20:59 Furosemide (Furosemide Inj 10 Mg/Ml Vial 2 Ml) 40 mg IVP BIDD [facility] Stop: 07/04/25 05:59 Azithromycin 500 mg/ Sodium (Chloride) 250 mls @ 250 mls/hr IV X1 ONE Stop: 06/03/25 18:13 Last Admin: 06/03/25 17:32 Dose: 250 mls/hr Labetalol HCl (Labetalol Inj 5 Mg/Ml Vial 20 Ml) 10 mg IVP Q2H PRN PRN Reason: SBP >180 Stop: 07/03/25 18:14 Ondansetron HCl (Ondansetron Inj 2 Mg/Ml Inj 2 Ml) 4 mg IVP Q6H PRN; Protocol PRN Reason: NAUSEA OR VOMITING Stop: 07/03/25 17:54 Prednisone (Prednisone 20 Mg Tablet) 40 mg PO QDAY [facility] Stop: 06/10/25 18:03 Sacubitril/Valsartan (Sacubitril 24 Mg/Valsartan 26 Mg Tablet) 1 tab PO BID [facility] Stop: 07/03/25 20:59 Sennosides (Senna Tablet) 1 tab PO QDAY PRN; Protocol PRN Reason: constipation Stop: 07/03/25 17:54 Sodium Chloride (Sodium Chloride Rt Analisa 0.9% 3 Ml Nebu) 9 ml INH PRN PRN PRN Reason: SOLN Stop: 07/03/25 15:36 Discontinued Medications Albuterol/Ipratropium (Albuterol/Ipratropium (Duoneb) Rt Analisa 3 Ml Nebu) 2.5 ml INH X1 ONE Stop: 06/03/25 15:38 Last Admin: 06/03/25 16:51 Dose: 2.5 ml Albuterol/Ipratropium (Albuterol/Ipratropium (Duoneb) Rt Analisa 3 Ml Nebu) 3 ml INH X1 ONE Stop: 06/03/25 15:46 Last Admin: 06/03/25 16:55 Dose: Not Given Diphenhydramine HCl (Diphenhydramine Inj 50 Mg/Ml Vial) 50 mg IVP X1 STA Stop: 06/03/25 15:38 Last Admin: 06/03/25 16:00 Dose: 50 mg Furosemide (Furosemide Inj 10 Mg/Ml 4ml Vial) 80 mg IVP X1 ONE Stop: 06/03/25 16:13 Last Admin: 06/03/25 16:38 Dose: 80 mg Magnesium Sulfate (Magnesium Sulfate Ivpb) 2 gm in 50 mls @ 25 mls/hr IV X1 ONE Stop: 06/03/25 17:36 Last Admin: 06/03/25 15:59 Dose: Not Given Magnesium Sulfate (Magnesium Sulfate Ivpb) 2 gm in 50 mls @ 150 mls/hr IV X1 ONE Stop: 06/03/25 16:16 Last Infusion: 06/03/25 16:20 Dose: Infused Ceftriaxone Sodium/Dextrose (Rocephin/D5w 1gm Iv Premix) 1 gm in 50 mls @ 100 mls/hr IV X1 ONE Stop: 06/03/25 17:43 Last Admin: 06/03/25 17:32 Dose: 100 mls/hr Levalbuterol HCl (Levalbuterol Rt 1.25 Mg/0.5 Ml Nebu) 3.75 mg INH X1 ONE Stop: 06/03/25 15:38 Last Admin: 06/03/25 16:50 Dose: 3.75 mg Methylprednisolone Sodium Succinate (Methylprednisolone Sod Succ 62.5 Mg/Ml 2ml Vial) 250 mg IVP X1 ONE Stop: 06/03/25 15:38 Last Admin: 06/03/25 16:00 Dose: 250 mg Metoprolol Tartrate (Metoprolol Tartrate 25 Mg Tablet) 25 mg PO X1 ONE Stop: 06/03/25 15:48 Last Admin: 06/03/25 16:38 Dose: 25 mg Morphine Sulfate (Morphine Sulf Inj 4 Mg/Ml Vial) 2 mg IV X1 ONE Stop: 06/03/25 16:13 Last Admin: 06/03/25 16:39 Dose: 2 mg Assessment & Plan Plan Augusto Galvan 70F pmhx significant for CKD, heart failure unknown EF, CVA 2014 with no residual deficits, CAD s/p 3 stents in HTN, COPD, and 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 #Acute hypoxic respiratory failure 2/2 #COPD exacerbation #CHF exacerbation, unknown EF #Lactic acidosis Presents with 5 days of worsening shortness of breath with severe orthopnea. Does not use rescue daily inhaler for COPD. Endorses PND and chest tightness 3 days prior to admission. No PND or orthopnea prior. Was diagnosed with heart failure, does not note EF, takes Entresto and Lasix 60 mg daily and another 60 mg as needed if leg swelling does not improve. Currently, no JVD or leg edema however with crackles bilaterally with wheezing. On admission, lactic acid 2.7, troponins negative, CRP 2.9, BNP 142 Pro-Javad negative. Concern for pneumonia as patient is being hospitalized for COPD exacerbation, low threshold to discontinue. Ddx: likely 2/2 COPD and CHF exacerbation. Ceftriaxone (06/03) Plan: - IV methylprednisolone 40 mg twice daily, DuoNebs q6h, with q2h prn, Azithromycin (06/03- - IV lasix 40 mg QD, strict I&Os, daily weights, avoid BB - Can restart Entresto if kdiney function improves, as unable to tell if Cr is baseline or CKD #Hypertensive urgency #Hx of HTN Patient does not remember what the blood pressure machine takes at home. Plan: - Caution with BB as patient is in COPD exacerbation - Nifedipine XL 30 mg QD - Hydralazine 10 mg q2h prn if SBP >180 and/or DSP >110 #GAMA? on CKD Admission Cr 2.5 GFR 20, unclear baseline or GAMA Plan: - CTM Cr - Caution with fluids as patient has CHF - Consider Ulytes if Cr does not improve #Hx of extensive multiple DVTs and PEs on lifetime Eliquis #CAD s/p 3 stents, 2000s #CVA ~2014 with no residual deficits Per history. Plan: - Continue Eliquis 5 mg BID - CTM #Hyperglycemia Likely 2/2 steroids as a1c 5.2 Plan: - SSI step [address] Hospital management: Lines: PIV Diet: cardiac Bowel: Senna prn GI prophylaxis: IV pantoprazole 40 mg QD DVT prophylaxis: Eliquis 5 mg BID Disposition: med tele, IV steroids, IV diuresis, IV abx CODE STATUS: FULL CODE Plan of care discussed with attending Dr. Joiner, and PGY-3 Dr. Melendez. Merced Tinajero DO PGY-1 Internal Medicine Attending Provider Attestation/Addendum I, Janki Joiner DO, attest that I was physically present for the dsouza portions of the service and evaluated the patient with the resident and I reviewed and discussed the case with the resident and agree with the resident's findings and plans of care as documented above Patient is a 70-year-old female with past medical history of CKD, CHF, CVA, CAD, HTN, COPD, DVT on chronic anticoagulation who presented to the ED with worsening dyspnea for the past 4 days. Patient admits to orthopnea which laying flat triggers profound wheezing. She initially started feeling ill and fatigued for over a week. She denied any sick contacts or recent travel. She noted worsening cough and productive sputum associated with her shortness of breath about two days ago. Patient states she has left chest pain, worse with deep inspiration and cough. Pt denies any previous hospitalizations for COPD, but has been hospitalized for CHF. Patient has trace edema in b/l LE. Lungs are noted to have scattered rhonchi and wheezing.CXR was done in ED showing no active disease. Patient is noted to have flattening of diaphragm. EKG shows sinus tachycardia and right bundle branch block. Hgb noted to be 16, may be due to hemoconcentration. Cr of 2.5, which may be due to CKD, unclear baseline Cr. Patient states she takes 60mg of furosemide daily. Will admit to med/tele for further w/u and medical management of acute COPD exacerbation. Will continue with IV steroids, azithromycin and breathing treatments. Will restart home antihypertensives due to hypertensive urgency.
[2025-06-03 18:23] LABS: Collection Type, Urine Clean Catch
[2025-06-03 18:29] LABS: Bilirubin,Urine Negative (Negative); Blood,Urine Negative (Negative); Clarity,Urine Clear (Clear/Hazy); Color,Urine Colorless (Lt Yel-Yel); Culture Indicated,Urine Not Indicated; Glucose, Urine Negative (Negative); Ketones,Urine Negative (Negative); Leukocyte Esterase,Urine Negative (Negative); Nitrite,Urine Negative (Negative); PH,Urine 6.0 (5.0-7.0); Protein,Urine Negative (Neg - Trace); RBC,Urine 2 /hpf (0-3); Specific Gravity,Urine 1.009 (1.001-1.035); Squamous Epithelial Cell,Urine < 1 /hpf (0-5); Urobilinogen,Urine Negative mg/dL (0.0-1.0); WBC,Urine 1 /hpf (0-5)
[2025-06-03] MEDS: hydrALAZINE INJ 20 MG/ML VIAL 10 MG IVP (18:49)
[2025-06-03 18:53] LABS: Lactate (Lactic Acid) 3.2 mMol/L (0.4-2.0)
[2025-06-03] MEDS: ALBUTEROL/IPRATROPIUM (Duoneb) RT SOL 3 ML NEBU INH (18:57)
[2025-06-03 19:11] LABS: Reflex Lactate? Y
[2025-06-03] MEDS: APIXABAN 2.5 MG TABLET 5 MG PO (21:05)
--- NOTE | 2025-06-03 21:08 | PC.NURSE ---
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
[2025-06-03 21:54] LABS: Reflex Lactate? Y
[2025-06-03 22:15] LABS: Lactic Acid, 3 HR 3.2 mMol/L (0.4-2.0)
[2025-06-03] MEDS: RINGERS LACTATED 1000 ML 500 ML 75 ML IV (22:50)
--- NOTE | 2025-06-03 23:00 | PC.NURSE ---
Per pt will bring med list in AM, pt cant remember her home meds.
[2025-06-04] VITALS (12 sets, daily range): BP systolic 103–149; BP diastolic 60–111; PULSE 70–94; RESP 16–20; TEMP 36.2–36.9; O2SAT 92–98
[2025-06-04 06:23] LABS: Basophils # (Auto) 0.0 Thou/mm3 (0.0-0.2); Basophils % (Auto) 0 % (0-2.5); Eosinophils # (Auto) 0.0 Thou/mm3 (0.0-0.5); Eosinophils % (Auto) 0 % (0-10); Hematocrit 42.4 % (36.0-46.0); Hemoglobin 14.9 g/dL (12.0-16.0); Immature Granulocytes Auto 0.02 Thou/mm3 (0.00-0.00); Lymphocytes # (Auto) 0.6 Thou/mm3 (1.0-4.8); Lymphocytes % (Auto) 8 % (10-50); Mean Corpuscular HGB Conc 35.1 g/dl (31.0-37.0); Mean Corpuscular Hemoglobin 32.9 pg (25.0-35.0); Mean Corpuscular Volume 94 fL (80-100); Monocytes # (Auto) 0.1 Thou/mm3 (0.0-0.8); Monocytes % (Auto) 1 % (0-12); Neutrophils # (Auto) 7.3 Thou/mm3 (1.8-7.7); Neutrophils % (Auto) 91 % (37-80); Nucleated Red Blood Cell # 0.00 Thou/mm3 (0.00-0.00); Nucleated Red Blood Cell % 0 /100 WBC (0); Platelet Count 297 Thou/mm3 (140-440); RDW Standard Deviation 44.1 fL (36.4-46.3); Red Blood Count 4.53 Miln/mm3 (4.00-5.20); White Blood Count 8.0 Thou/mm3 (3.6-11.0)
[2025-06-04 06:35] LABS: INR 1.0 (0.9-1.3); Partial Thromboplastin Time 26.7 Seconds (22.0-36.0); Prothrombin Time 10.8 Seconds (9.0-12.2)
[2025-06-04] MEDS: ALBUTEROL/IPRATROPIUM (Duoneb) RT SOL 3 ML NEBU INH ×2 (06:54→11:39)
[2025-06-04 07:03] LABS: Alanine Aminotransferase < 7 U/L (10-49); Albumin, Serum 4.7 gm/dL (3.4-4.8); Albumin/Globulin Ratio 2.0 (1.2-2.2); Alkaline Phosphatase 97 U/L (46-116); Anion Gap 16 (7-16); Aspartate Amino Transferase 12 U/L (0-34); BUN/Creatinine Ratio 17 Ratio (12-20); Bilirubin,Total 0.4 mg/dL (0.3-1.2); Blood Urea Nitrogen 36 mg/dL (9-23); Calcium 9.8 mg/dL (8.3-10.6); Calcium (Corrected) 9.8 mg/dL (8.5-10.1); Carbon Dioxide 22.2 mMol/L (20.0-31.0); Cardiac Risk Estimate 3.4 RATIO (3.7-5.6); Chloride 104 mMol/L (98-107); Cholesterol 176 mg/dL (132-200); Creatinine (Component) 2.1 mg/dL (0.6-1.3); Estimated Creatinine Clearance 25.3 mL/min (>60); Free T4 (Free Thyroxine) 1.39 ng/dL (0.89-1.76); Globulin 2.3 gm/dL (2.3-3.5); Glucose 175 mg/dL (74-106); HDL Cholesterol 52 mg/dL (40-60); LDL Cholesterol,Calculated 111 mg/dL (0-130); Magnesium 2.3 mg/dL (1.6-2.6); Osmolality,Calculated 295 (275-295); Phosphorous 3.9 mg/dL (2.4-5.1); Potassium 3.0 mMol/L (3.4-5.1); Sodium 142 mMol/L (136-145); Total Protein 7.0 gm/dL (5.7-8.2); Triglycerides 67 mg/dL (30-150); eGFR 25 See Note
--- NOTE | 2025-06-04 07:57 | ESPR_ITS ---
Documentation for date of: 06/04/25 Subjective Subjective Interval history: Ms. Galvan is a 70 year old woman with, CVA, HFpEF, CAD with stents, CKD and admitted for COPD exaccerbation with significant wheezing. Increased methylpred from 40 bid to tid. EKG with no new infarcts. LBBB, will trend trops, on elequis BID for PNA ppx, on azithro and CTX pending renal US repeat pm renal panel with worse GAMA, 2.3 from 2.1, Exam Vital Signs Temp Pulse Resp BP Pulse Ox O2 Del Method O2 Flow Rate 97.1 F 76 20 138/60 H 98 Nasal Cannula 2 06/04/25 04:00 06/04/25 06:56 06/04/25 06:56 06/04/25 04:00 06/04/25 06:56 06/04/25 04:00 06/04/25 06:56 Narrative Exam GENERAL: AOx3, no acute distress HEENT: mucous membranes dry, bilateral sclera anicteric CARDIOVASCULAR: regular rate and rhythm, S1/S2 present, no murmurs appreciated PULMONARY: Diffuse wheezing bilaterally, ABDOMINAL: soft, non-tender, non-distended, no rebound/guarding, bowel sounds present EXTREMITIES: no peripheral edema SKIN: warm and dry, intact, no rashes NEURO: CN II-XII grossly intact, no focal deficits, alert, following commands Objective Labs 06/04/25 04:50 06/04/25 13:20 Labs: Laboratory Results - last 24 hr 06/03/25 06/03/25 06/03/25 06:18 15:47 16:00 WBC 7.2 RBC 5.06 Hgb 16.3 H Hct 47.3 H MCV 94 MCH 32.2 MCHC 34.5 RDW Std Deviation 44.3 Plt Count 319 Neut % (Auto) 58 Lymph % (Auto) 30 [place] % (Auto) 8 Eos % (Auto) 3 Baso % (Auto) 1 Neut # (Auto) 4.2 Lymph # (Auto) 2.2 [place] # (Auto) 0.6 Eos # (Auto) 0.2 Baso # (Auto) 0.1 Immature Gran # (Auto) 0.01 H Absolute Nucleated RBC 0.00 Immature Gran % 0 Nucleated RBC % 0 ESR 29 PT INR APTT D-Dimer 470 Puncture Site Right Radial ABG pH 7.42 ABG pCO2 35 ABG pO2 70 L ABG HCO3 23 ABG O2 Saturation 95 ABG Base Excess -1 FiO2 21 Sodium 140 Potassium 3.4 Chloride 103 Carbon Dioxide 21.7 Anion Gap 15 BUN 28 H Creatinine 2.5 H Estim Creat Clear Calc 21.0 L eGFR 20 L BUN/Creatinine Ratio 11 L Glucose [address] Glu mg/dL 103 Hemoglobin A1c 5.2 Calculated Osmolality 291 Lactic Acid 2.7 H Calcium 9.9 Corrected Calcium 9.9 Phosphorus Magnesium 2.0 Total Bilirubin 0.6 Direct Bilirubin 0.2 AST 19 ALT 8 L Alkaline Phosphatase 112 Troponin I < 0.020 C-Reactive Prot, Quant 2.9 H B-Natriuretic Peptide 142 H Total Protein 7.6 Albumin 5.1 H Globulin 2.5 Albumin/Globulin Ratio 2.0 Triglycerides Cholesterol LDL Cholesterol, Calc HDL Cholesterol Cholesterol/HDL Ratio Lipase 34 Procalcitonin 0.17 TSH 2.12 Free T4 Ur Collection Type Clean Catch Urine Color Colorless A Urine Clarity Clear Urine pH 6.0 Ur Specific [place] 1.009 Urine Protein Negative Urine Glucose (UA) Negative Urine Ketones Negative Urine Blood Negative Urine Nitrite Negative Urine Bilirubin Negative Urine Urobilinogen (Auto) Negative Ur Leukocyte Esterase Negative Urine RBC 2 Urine WBC 1 Ur Squamous Epith Cells < 1 Urine Bacteria None Ur Culture Indicated? Not Indicated Influenza A (Rapid) Influenza B (Rapid) 06/03/25 06/03/25 06/03/25 16:50 18:30 21:59 WBC RBC Hgb Hct MCV MCH MCHC RDW Std Deviation Plt Count Neut % (Auto) Lymph % (Auto) [place] % (Auto) Eos % (Auto) Baso % (Auto) Neut # (Auto) Lymph # (Auto) [place] # (Auto) Eos # (Auto) Baso # (Auto) Immature Gran # (Auto) Absolute Nucleated RBC Immature Gran % Nucleated RBC % ESR PT INR APTT D-Dimer Puncture Site ABG pH ABG pCO2 ABG pO2 ABG HCO3 ABG O2 Saturation ABG Base Excess FiO2 Sodium Potassium Chloride Carbon Dioxide Anion Gap BUN Creatinine Estim Creat Clear Calc eGFR BUN/Creatinine Ratio Glucose Estimated Ave Glu mg/dL Hemoglobin A1c Calculated Osmolality Lactic Acid 3.2 H 3.2 H Calcium Corrected Calcium Phosphorus Magnesium Total Bilirubin Direct Bilirubin AST ALT Alkaline Phosphatase Troponin I C-Reactive Prot, Quant B-Natriuretic Peptide Total Protein Albumin Globulin Albumin/Globulin Ratio Triglycerides Cholesterol LDL Cholesterol, Calc HDL Cholesterol Cholesterol/HDL Ratio Lipase Procalcitonin TSH Free T4 Ur Collection Type Urine Color Urine Clarity Urine pH Ur Specific [place] Urine Protein Urine Glucose (UA) Urine Ketones Urine Blood Urine Nitrite Urine Bilirubin Urine Urobilinogen (Auto) Ur Leukocyte Esterase Urine RBC Urine WBC Ur Squamous Epith Cells Urine Bacteria Ur Culture Indicated? Influenza A (Rapid) Negative Influenza B (Rapid) Negative 06/04/25 04:50 WBC 8.0 RBC 4.53 Hgb 14.9 Hct 42.4 MCV 94 MCH 32.9 MCHC 35.1 RDW Std Deviation 44.1 Plt Count 297 Neut % (Auto) 91 H Lymph % (Auto) 8 L [place] % (Auto) 1 Eos % (Auto) 0 Baso % (Auto) 0 Neut # (Auto) 7.3 Lymph # (Auto) 0.6 L [place] # (Auto) 0.1 Eos # (Auto) 0.0 Baso # (Auto) 0.0 Immature Gran # (Auto) 0.02 H Absolute Nucleated RBC 0.00 Immature Gran % 0 Nucleated RBC % 0 ESR PT 10.8 INR 1.0 APTT 26.7 D-Dimer Puncture Site ABG pH ABG pCO2 ABG pO2 ABG HCO3 ABG O2 Saturation ABG Base Excess FiO2 Sodium 142 Potassium 3.0 L Chloride 104 Carbon Dioxide 22.2 Anion Gap 16 BUN 36 H Creatinine 2.1 H Estim Creat Clear Calc 25.3 L eGFR 25 L BUN/Creatinine Ratio 17 Glucose [address] Glu mg/dL Hemoglobin A1c Calculated Osmolality 295 Lactic Acid Calcium 9.8 Corrected Calcium 9.8 Phosphorus 3.9 Magnesium 2.3 Total Bilirubin 0.4 Direct Bilirubin AST 12 ALT < 7 L Alkaline Phosphatase 97 Troponin I C-Reactive Prot, Quant B-Natriuretic Peptide Total Protein 7.0 Albumin 4.7 Globulin 2.3 Albumin/Globulin Ratio 2.0 Triglycerides 67 Cholesterol 176 LDL Cholesterol, Calc 111 HDL Cholesterol 52 Cholesterol/HDL Ratio 3.4 L Lipase Procalcitonin TSH Free T4 1.39 Ur Collection Type Urine Color Urine Clarity Urine pH Ur Specific [place] Urine Protein Urine Glucose (UA) Urine Ketones Urine Blood Urine Nitrite Urine Bilirubin Urine Urobilinogen (Auto) Ur Leukocyte Esterase Urine RBC Urine WBC Ur Squamous Epith Cells Urine Bacteria Ur Culture Indicated? Influenza A (Rapid) Influenza B (Rapid) ABG Interpretation ABG results: 06/03/25 15:47 ABG pH 7.42 ABG pCO2 35 ABG pO2 70 L ABG HCO3 23 ABG O2 Saturation 95 ABG Base Excess -1 Quality Measures Quality Measures VTE prophylaxis Advance care planning discussed with:: patient Assessment & Plan Assessment Current Active Medications: Generic Name Dose Route Start Last Admin Trade Name [place] PRN Reason Stop Dose Admin Acetaminophen 650 mg 06/03/25 17:55 Acetaminophen 325 Mg Tablet PO 07/03/25 17:54 Q6H PRN Fever >100.4 or pain Albuterol/Ipratropium 3 ml 06/03/25 19:00 06/04/25 06:54 Albuterol/Ipratropium (Duoneb) Rt Analisa 3 Ml Nebu INH 07/03/25 18:59 3 ml Q4HRRT KELSEY Administration Apixaban 5 mg 06/03/25 21:00 06/03/25 21:05 Apixaban 2.5 Mg Tablet PO 06/24/25 20:59 5 mg BID KELSEY Administration Dextrose 25 ml 06/03/25 18:39 Dextrose 50%-Water Inj 50 Ml Syringe IV 07/03/25 18:38 Q15MIN PRN BG 50-70 responsive npo pt Dextrose 50 ml 06/03/25 18:39 Dextrose 50%-Water Inj 50 Ml Syringe IV 07/03/25 18:38 Q15MIN PRN BG <50 OR BG <70 & pt unresponsive Furosemide 40 mg 06/04/25 09:00 Furosemide Inj 10 Mg/Ml Vial 2 Ml IVP 07/04/25 08:59 QDAY KELSEY Glucagon 1 mg 06/03/25 18:39 Glucagon Inj 1 Mg Vial IM Q15MIN PRN BG <70, and no IV access Hydralazine HCl 10 mg 06/03/25 18:38 06/03/25 18:49 Hydralazine Inj 20 Mg/Ml Vial IVP 07/03/25 18:44 10 mg Q2H PRN Administration SBP >180 or DSP >110 Azithromycin 500 mg/ Sodium 250 mls @ 250 mls/hr 06/04/25 14:00 Chloride IV 06/11/25 13:59 QDAY@1400 [facility] Influenza Virus Vaccine Quadrival 0.5 ml 06/04/25 10:00 Influenza Virus 0.5 Ml Syringe IMi 06/04/25 10:01 .ONCE ONE Insulin Human Lispro 0 unit 06/04/25 07:30 Insulin Lispro (Admelog) 1 Unit/0.01 Ml Unit SC 07/04/25 07:29 AC KELSEY Protocol Methylprednisolone Sodium Succinate 40 mg 06/03/25 21:00 06/03/25 21:05 Methylprednisolone Sod Succ 40 Mg/Ml Vial IVP 06/10/25 20:59 40 mg BID KELSEY Administration Nifedipine 30 mg 06/04/25 09:00 Nifedipine Xl 30 Mg Tabcr PO 07/04/25 08:59 QDAY KELSEY Ondansetron HCl 4 mg 06/03/25 17:55 Ondansetron Inj 2 Mg/Ml Inj 2 Ml IVP 07/03/25 17:54 Q6H PRN NAUSEA OR VOMITING Protocol Pantoprazole Sodium 40 mg 06/04/25 09:00 Pantoprazole Inj 40 Mg Vial IVP 07/04/25 08:59 QDAY KELSEY Sennosides 1 tab 06/03/25 17:55 Senna Tablet PO 07/03/25 17:54 QDAY PRN constipation Protocol Sodium Chloride 9 ml 06/03/25 15:37 Sodium Chloride Rt Analisa 0.9% 3 Ml Nebu INH 07/03/25 15:36 PRN PRN SOLN Plan Augusto Galvan 70F pmhx significant for CKD, heart failure unknown EF, CVA 2014 with no residual deficits, CAD s/p 3 stents in HTN, COPD, and 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 #Acute hypoxic respiratory failure 2/2 #COPD exacerbation, not on home O2. #CHF exacerbation, unknown EF #Lactic acidosis Presents with 5 days of worsening shortness of breath with severe orthopnea. Does not use rescue daily inhaler for COPD. Endorses PND and chest tightness 3 days prior to admission. No PND or orthopnea prior. Was diagnosed with heart failure, does not note EF, takes Entresto and Lasix 60 mg daily and another 60 mg as needed if leg swelling does not improve. Currently, no JVD or leg edema however with crackles bilaterally with wheezing. On admission, lactic acid 2.7, troponins negative, CRP 2.9, BNP 142 Pro-Javad negative. Concern for pneumonia as patient is being hospitalized for COPD exacerbation, low threshold to discontinue. Ddx: likely 2/2 COPD and CHF exacerbation. Ceftriaxone (06/03) Plan: - trending troponin q6hr - EKG repeat with LBBB, no new infarct. - increased IV methylprednisolone 40 mg to TID, DuoNebs q6h, with q2h prn, - Azithromycin (06/03- ) 5- 7 day course intended - Ceftriaxone (06/04- ) 5-7 day course intended - IV lasix 40 mg QD, strict I&Os, daily weights, avoid BB - Can restart GDMT, Entresto if kidney function improves, as unable to tell if Cr is baseline or CKD - pending echo read #Hypertensive urgency, resolved #Hx of HTN Patient does not remember what the blood pressure machine takes at home. Plan: - Caution with BB as patient is in COPD exacerbation - Nifedipine XL 30 mg QD - Hydralazine 10 mg q2h prn if SBP >180 and/or DSP >110 #GAMA? on CKD Admission Cr 2.5 GFR 20, unclear baseline or GAMA Cr was downtrending to 2.1 but then uptrended on repeat pm labs to 2.3 Plan: - CTM Cr - Caution with fluids as patient has CHF - Consider Ulytes if Cr does not improve - pending renal US - consider d/c lasix? #Hx of extensive multiple DVTs and PEs on lifetime Eliquis #CAD s/p 3 stents, 2000s #CVA ~2014 with no residual deficits #suspected Afib Per history. pt was followed by [facility] in [place] previoulsy, suspect hx of afib. pt has hx of DVT and PE, but was not taking medications for the past several months 2/2 lapse in insurance coverage. Plan: - Continue Eliquis 5 mg BID - CTM - ASA 81 mg qd - cont atorvastatin 20 #Hyperglycemia Likely 2/2 steroids as a1c 5.2 Plan: - SSI step [address] #Constipation no bm for 3 days. - lactulose 30 mg x1 - senna/docusate qd scheduled Hospital management: Lines: PIV Diet: cardiac Bowel: Senna and docusate scheduled GI prophylaxis: IV pantoprazole 40 mg QD DVT prophylaxis: Eliquis 5 mg BID Disposition: med tele, IV steroids, IV diuresis, IV abx, trending trops. CODE STATUS: FULL CODE Plan discussed with my attending Dr. Steward and my senior resident Dr. Sharon Garvin MD PGY1 Attending Provider Attestation/Addendum I Tod Steward MD reviewed the note and agree with the resident's assessment & plan with modifications/additions/exceptions as below. I have personally reviewed labs, imaging, home meds/prior records, examined the patient, formulated and discussed management plan with the IM team. A 70-year-old female with history of CVA, HFrEF, CAD s/p PCI, AF, DVT/PE not on any medications since past 10 months due to insurance issues admitted with COPD exacerbation, GAMA on CKD. Hemodynamically stable however on 3 L with mild to moderate wheezing, creatinine is improving, CRP significantly elevated. Will continue azithromycin, add Rocephin for empiric coverage, increase methylprednisolone to 40 mg IV 3 times daily, continue inhaled LABA ROCK & antimuscarinic agents, will get EKG, troponin, echocardiogram, US KUB for evaluation of kidney disease. Continue Eliquis in the setting of history of A- fib. Will start on GDMT and uptitrate as tolerated. Will need drug abuse social worker help before discharge regarding medication arrangement.
[2025-06-04] MEDS: FUROSEMIDE INJ 10 MG/ML VIAL 2 ML 40 MG IVP (09:10)
[2025-06-04] MEDS: NIFEdipine XL 30 MG TABCR PO (09:10)
[2025-06-04] MEDS: INSULIN LISPRO (AdmeLOG) 1 UNIT/0.01 ML UNIT SC ×3 (09:11→17:48)
[2025-06-04] MEDS: APIXABAN 2.5 MG TABLET 5 MG PO ×2 (09:11→21:07)
[2025-06-04] MEDS: LACTULOSE SYRUP 20 GM/30 ML UDC 30 GM PO (12:23)
--- NOTE | 2025-06-04 12:23 | PC.SS ---
Patient is a 70 year old female presenting to the hospital for COPD exacerbation. STOGY ROLLER met with patient at bedside, STOGY ROLLER introduced self, role, and reason for visit. Patient confirmed mailing address on face sheet but stated she does not remember her address. Patient stated that she lives at home with her Denis Sanchez [phone]. Patient confirmed phone numbers on file and stated that in case she is unable to make medical decisions on her own she would like her to make them. Patient stated that she has a walker with cushion at home and a can that she utilizes to complete ADL?S. Patient stated that her hydrology professor is Dr. Whaley in [place]. STOGY ROLLER inquired patients PCP, patient stated that she does not remember the name of the clinic or the doctor and stated that it is in [place] and her last appointment with PCP was at the beginning of the year. ?Patient stated that she will be switching PCP to [place]. Patient stated that once medically clear she would like to go home and stated that her will provide transportation. D/C: Home Decision maker: Denis Sanchez PCP: Patient unsure.
--- NOTE | 2025-06-04 13:02 | XR_ITS ---
Examination: Retroperitoneal ultrasound, complete Technique: Multiple high resolution grayscale images of the retroperitoneum obtained, including kidneys and bladder. Exam date and time: June 04, 2025, 1608 hours INDICATIONS: Difficulty urinating and flank pain beginning 1 week ago FINDINGS: Right kidney 7.5 cm renal cortex 0.7 cm Left kidney 7.6 cm renal cortex 0.7 cm Moderate bilateral renal scar formation No hydronephrosis Contracted urinary bladder IMPRESSION: Small kidneys with bilateral renal cortical thinning. Moderate bilateral renal scar formation. No hydronephrosis or renal calculi.
[2025-06-04] MEDS: ACETAMINOPHEN 325 MG TABLET 650 MG PO (13:34)
[2025-06-04] MEDS: cefTRIAXone/D5w 1gm IV premix 1 GM/50 ML BAG IV (13:34)
--- NOTE | 2025-06-04 14:18 | EKG_ITS ---
[facility] Test Date: 2025-06-04 Pat Name: ALLISON WALLER [facility] Gender[facility] Band Maker: ORIN : [id number] Requested By: Tod Downing Order Number: [id number] Reading MD: Tod Downing Measurements Intervals [place]itter Rate: 96 P: 46 OR: 167 QRS: 1 QRSD: 129 T: 105 QT: 369 QTc: 467 Interpretive Statements SINUS RHYTHM POSSIBLE LEFT ATRIAL ENLARGEMENT MODERATE INTRAVENTRICULAR CONDUCTION DELAY ST DEVIATION AND MODERATE T-WAVE ABNORMALITY, CONSIDER LATERAL ISCHEMIA Compared to ECG 06/03/2025 15:40:21 Sinus tachycardia no longer present Ventricular premature complex(es) no longer present T-wave abnormality still present Possible ischemia still present /store/S0/[id number]/ecg/[id number].pdf
[2025-06-04 15:10] LABS: Albumin, Serum 5.1 gm/dL (3.4-4.8); Anion Gap 17 (7-16); BUN/Creatinine Ratio 13 Ratio (12-20); Blood Urea Nitrogen 29 mg/dL (9-23); Calcium 10.2 mg/dL (8.3-10.6); Calcium (Corrected) 10.2 mg/dL (8.5-10.1); Carbon Dioxide 21.0 mMol/L (20.0-31.0); Chloride 103 mMol/L (98-107); Creatinine (Component) 2.3 mg/dL (0.6-1.3); Estimated Creatinine Clearance 23.1 mL/min (>60); Glucose 241 mg/dL (74-106); Osmolality,Calculated 295 (275-295); Phosphorous 2.7 mg/dL (2.4-5.1); Potassium 3.5 mMol/L (3.4-5.1); Sodium 141 mMol/L (136-145); eGFR 22 See Note
[2025-06-04] MEDS: AZITHROMYCIN INJ 500 MG in SODIUM CHLORIDE 0.9% 250 ML 250 ML 250 MG IV (15:45)
[2025-06-04 17:06] LABS: Troponin I 0.020 ng/mL (0.0-0.045)
[2025-06-05] VITALS (13 sets, daily range): BP systolic 95–139; BP diastolic 72–89; PULSE 63–88; RESP 16–98; TEMP 36.1–36.4; O2SAT 93–98
[2025-06-05 01:33] LABS: Troponin I 0.023 ng/mL (0.0-0.045)
[2025-06-05 06:55] LABS: Basophils # (Auto) 0.0 Thou/mm3 (0.0-0.2); Basophils % (Auto) 0 % (0-2.5); Eosinophils # (Auto) 0.0 Thou/mm3 (0.0-0.5); Eosinophils % (Auto) 0 % (0-10); Hematocrit 39.5 % (36.0-46.0); Hemoglobin 13.4 g/dL (12.0-16.0); Immature Granulocytes Auto 0.16 Thou/mm3 (0.00-0.00); Lymphocytes # (Auto) 0.9 Thou/mm3 (1.0-4.8); Lymphocytes % (Auto) 5 % (10-50); Mean Corpuscular HGB Conc 33.9 g/dl (31.0-37.0); Mean Corpuscular Hemoglobin 32.2 pg (25.0-35.0); Mean Corpuscular Volume 95 fL (80-100); Monocytes # (Auto) 0.3 Thou/mm3 (0.0-0.8); Monocytes % (Auto) 2 % (0-12); Neutrophils # (Auto) 19.2 Thou/mm3 (1.8-7.7); Neutrophils % (Auto) 93 % (37-80); Nucleated Red Blood Cell # 0.00 Thou/mm3 (0.00-0.00); Nucleated Red Blood Cell % 0 /100 WBC (0); Platelet Count 273 Thou/mm3 (140-440); RDW Standard Deviation 45.5 fL (36.4-46.3); Red Blood Count 4.16 Miln/mm3 (4.00-5.20); White Blood Count 20.6 Thou/mm3 (3.6-11.0)
[2025-06-05 07:19] LABS: Albumin, Serum 4.6 gm/dL (3.4-4.8); Albumin/Globulin Ratio 2.4 (1.2-2.2); Alkaline Phosphatase 85 U/L (46-116); Anion Gap 11 (7-16); Aspartate Amino Transferase 10 U/L (0-34); BUN/Creatinine Ratio 20 Ratio (12-20); Bilirubin,Total 0.4 mg/dL (0.3-1.2); Blood Urea Nitrogen 40 mg/dL (9-23); Calcium 9.5 mg/dL (8.3-10.6); Calcium (Corrected) 9.5 mg/dL (8.5-10.1); Carbon Dioxide 25.5 mMol/L (20.0-31.0); Chloride 108 mMol/L (98-107); Creatinine (Component) 2.0 mg/dL (0.6-1.3); Estimated Creatinine Clearance 26.5 mL/min (>60); Globulin 1.9 gm/dL (2.3-3.5); Glucose 161 mg/dL (74-106); Magnesium 2.4 mg/dL (1.6-2.6); Osmolality,Calculated 299 (275-295); Potassium 4.4 mMol/L (3.4-5.1); Sodium 144 mMol/L (136-145); Total Protein 6.5 gm/dL (5.7-8.2); Troponin I 0.020 ng/mL (0.0-0.045); eGFR 26 See Note
--- NOTE | 2025-06-05 07:22 | ESPR_ITS ---
<Statement entered by Mali Steward MD - 06/06/25 16:52> Patient was seen and examined by me personally. I have directly supervised and reviewed documentation by the team resident and agree with its findings. ------- Plan of care was discussed with the attending, Dr. Bin Steward, PGY-2 Documentation for date of: 06/05/25 Subjective Subjective Interval history: Ms Galvan is a 70 year old woman with GAMA on CKD which is downtrending , admitted for COPD exacerbation, whose wheezing markedly improved after increasing methylpred to 40 tid from bid. Leukocytosis on labs today, likely 2/2 increase in steroids, d/c methylpred and start prednisone po 40 qd. Started on metoprolol succs 25 mg Patient had small BM yesterday after 30 lactulose. given additional 30 lactulose today. pt remains afebrile, satting 99% on 2LNC and talking in full sentences. she continues on CTX and azithro, plan for 5 day course. found to have 1/2 gpc in blood cx, started on vanc, pharmacy to dose. patient states that when she had insurance several months ago she was taking albuterol, and not on any home o2. She reports having stopped smoking 2 weeks ago. Exam Vital Signs Temp Pulse Resp BP Pulse Ox O2 Del Method O2 Flow Rate 97.0 F 84 18 116/75 94 L Nasal Cannula 2 06/05/25 04:00 06/05/25 07:14 06/05/25 07:14 06/05/25 04:00 06/05/25 07:14 06/05/25 04:00 06/04/25 20:00 Narrative Exam GENERAL: AOx3, no acute distress HEENT: mucous membranes dry, bilateral sclera anicteric CARDIOVASCULAR: regular rate and rhythm, S1/S2 present, no murmurs appreciated PULMONARY:bilatteral wheezing much improved from prior, lungs sound more clear to auscultation. ABDOMINAL: soft, non-tender, non-distended, no rebound/guarding, bowel sounds present EXTREMITIES: no peripheral edema SKIN: warm and dry, intact, no rashes NEURO: CN II-XII grossly intact, no focal deficits, alert, following commands Objective Labs 06/05/25 06:19 06/05/25 06:19 Labs: Laboratory Results - last 24 hr 06/04/25 06/04/25 06/05/25 13:20 16:30 00:37 WBC RBC Hgb Hct MCV MCH MCHC RDW Std Deviation Plt Count Neut % (Auto) Lymph % (Auto) [place] % (Auto) Eos % (Auto) Baso % (Auto) Neut # (Auto) Lymph # (Auto) [place] # (Auto) Eos # (Auto) Baso # (Auto) Immature Gran # (Auto) Absolute Nucleated RBC Immature Gran % Nucleated RBC % Sodium 141 Potassium 3.5 D Chloride 103 Carbon Dioxide 21.0 Anion Gap 17 H BUN 29 H Creatinine 2.3 H Estim Creat Clear Calc 23.1 L eGFR 22 L BUN/Creatinine Ratio 13 Glucose 241 H D Calculated Osmolality 295 Calcium 10.2 Corrected Calcium 10.2 H Phosphorus 2.7 Troponin I 0.020 0.023 Albumin 5.1 H 06/05/25 06:19 WBC 20.6 H D RBC 4.16 Hgb 13.4 Hct 39.5 MCV 95 MCH 32.2 MCHC 33.9 RDW Std Deviation 45.5 Plt Count 273 Neut % (Auto) 93 H Lymph % (Auto) 5 L [place] % (Auto) 2 Eos % (Auto) 0 Baso % (Auto) 0 Neut # (Auto) 19.2 H Lymph # (Auto) 0.9 L [place] # (Auto) 0.3 Eos # (Auto) 0.0 Baso # (Auto) 0.0 Immature Gran # (Auto) 0.16 H Absolute Nucleated RBC 0.00 Immature Gran % 1 H Nucleated RBC % 0 Sodium Potassium Chloride Carbon Dioxide Anion Gap BUN Creatinine Estim Creat Clear Calc eGFR BUN/Creatinine Ratio Glucose Calculated Osmolality Calcium Corrected Calcium Phosphorus Troponin I Albumin ABG Interpretation ABG results: 06/03/25 15:47 ABG pH 7.42 ABG pCO2 35 ABG pO2 70 L ABG HCO3 23 ABG O2 Saturation 95 ABG Base Excess -1 Quality Measures Quality Measures VTE prophylaxis Advance care planning discussed with:: patient Assessment & Plan Assessment Current Active Medications: Generic Name Dose Route Start Last Admin Trade Name Freq PRN Reason Stop Dose Admin Acetaminophen 650 mg 06/03/25 17:55 06/04/25 13:34 Acetaminophen 325 Mg Tablet PO 07/03/25 17:54 650 mg Q6H PRN Administration Fever >100.4 or pain Albuterol/Ipratropium 3 ml 06/04/25 16:03 Albuterol/Ipratropium (Duoneb) Rt Analisa 3 Ml Nebu INH 07/04/25 18:59 Q4HRRT PRN SHORTNESS OF BREATH Apixaban 5 mg 06/03/25 21:00 06/04/25 21:07 Apixaban 2.5 Mg Tablet PO 06/24/25 20:59 5 mg BID KELSEY Administration Dextrose 25 ml 06/03/25 18:39 Dextrose 50%-Water Inj 50 Ml Syringe IV 07/03/25 18:38 Q15MIN PRN BG 50-70 responsive npo pt Dextrose 50 ml 06/03/25 18:39 Dextrose 50%-Water Inj 50 Ml Syringe IV 07/03/25 18:38 Q15MIN PRN BG <50 OR BG <70 & pt unresponsive Furosemide 40 mg 06/04/25 09:00 06/04/25 09:10 Furosemide Inj 10 Mg/Ml Vial 2 Ml IVP 07/04/25 08:59 40 mg QDAY KELSEY Administration Glucagon 1 mg 06/03/25 18:39 Glucagon Inj 1 Mg Vial IM Q15MIN PRN BG <70, and no IV access Hydralazine HCl 10 mg 06/03/25 18:38 06/03/25 18:49 Hydralazine Inj 20 Mg/Ml Vial IVP 07/03/25 18:44 10 mg Q2H PRN Administration SBP >180 or DSP >110 Azithromycin 500 mg/ Sodium 250 mls @ 250 mls/hr 06/04/25 14:00 06/04/25 15:45 Chloride IV 06/11/25 13:59 250 mls/hr QDAY@1400 KELSEY Administration Ceftriaxone Sodium/Dextrose 1 gm in 50 mls @ 100 mls/hr 06/04/25 13:03 06/04/25 13:34 Rocephin/D5w 1gm Iv Premix IV 06/11/25 13:02 100 mls/hr QDAY KELSEY Administration Insulin Human Lispro 0 unit 06/04/25 07:30 06/04/25 17:48 Insulin Lispro (Admelog) 1 Unit/0.01 Ml Unit SC 07/04/25 07:29 2 unit AC KELSEY Administration Protocol Methylprednisolone Sodium Succinate 40 mg 06/04/25 14:00 06/05/25 05:33 Methylprednisolone Sod Succ 40 Mg/Ml Vial IVP 06/11/25 13:59 40 mg TID KELSEY Administration Nifedipine 30 mg 06/04/25 09:00 06/04/25 09:10 Nifedipine Xl 30 Mg Tabcr PO 07/04/25 08:59 30 mg QDAY KELSEY Administration Ondansetron HCl 4 mg 06/03/25 17:55 Ondansetron Inj 2 Mg/Ml Inj 2 Ml IVP 07/03/25 17:54 Q6H PRN NAUSEA OR VOMITING Protocol Pantoprazole Sodium 40 mg 06/04/25 09:00 06/04/25 09:11 Pantoprazole Inj 40 Mg Vial IVP 07/04/25 08:59 40 mg QDAY KELSEY Administration Sennosides 1 tab 06/05/25 09:00 Senna/Docusate Sod 1 Tab Tablet PO 07/05/25 08:59 QDAY PRN CONSTIPATION Protocol Sodium Chloride 9 ml 06/03/25 15:37 Sodium Chloride Rt Analisa 0.9% 3 Ml Nebu INH 07/03/25 15:36 PRN PRN SOLN Plan Augusto Galvan 70F pmhx significant for CKD, heart failure unknown EF, CVA 2014 with no residual deficits, CAD s/p 3 stents in HTN, COPD, and 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 found to have 1/2 gpc bacteremia, started on vanco. #Acute hypoxic respiratory failure 2/2 #COPD exacerbation, not on home O2. #CHF exacerbation, unknown EF #Lactic acidosis Presents with 5 days of worsening shortness of breath with severe orthopnea. Does not use rescue daily inhaler for COPD. Endorses PND and chest tightness 3 days prior to admission. No PND or orthopnea prior. Was diagnosed with heart failure, does not note EF, takes Entresto and Lasix 60 mg daily and another 60 mg as needed if leg swelling does not improve. Currently, no JVD or leg edema however with crackles bilaterally with wheezing. On admission, lactic acid 2.7, troponins negative, CRP 2.9, BNP 142 Pro-Javad negative. Concern for pneumonia as patient is being hospitalized for COPD exacerbation, low threshold to discontinue. Ddx: likely 2/2 COPD and CHF exacerbation. Ceftriaxone (06/03) Plan: - trending troponin q6hr - EKG repeat with LBBB, no new infarct. - d/c IV methylprednisolone 40 mg to TID, DuoNebs q6h, with q2h prn - Azithromycin (06/03- ) 5- 7 day course intended - Ceftriaxone (06/04- ) 5-7 day course intended - IV lasix 40 mg QD, strict I&Os, daily weights, avoid BB - GDMT: metoprolol succs 25 qd - pending echo read #1/2 GPC Bacteremia, speciation pending Bcx from 06/03 with 1/2 tubes growing GPC Plan - Start Vanco (06/05- ) deescalate as indicated - f/u speciation #Hypertensive urgency, resolved #Hx of HTN Patient does not remember what the blood pressure machine takes at home. Plan: - Caution with BB as patient is in COPD exacerbation - Nifedipine XL 30 mg QD - Hydralazine 10 mg q2h prn if SBP >180 and/or DSP >110 #GAMA? on CKD Admission Cr 2.5 GFR 20, unclear baseline or GAMA Cr now 2.0 Plan: - CTM Cr - Caution with fluids as patient has CHF - Consider Ulytes if Cr does not improve - renal US with small kidneys bilaterally, and with cortical thinning and scar #Hx of extensive multiple DVTs and PEs on lifetime Eliquis #CAD s/p 3 stents, 2000s #CVA ~2014 with no residual deficits #suspected Afib Per history. pt was followed by draw frame runner in [place] previoulsy, suspect hx of afib. pt has hx of DVT and PE, but was not taking medications for the past several months 2/2 lapse in insurance coverage. Plan: - Continue Eliquis 5 mg BID - CTM - ASA 81 mg qd - cont atorvastatin 20 #Hyperglycemia Likely 2/2 steroids as a1c 5.2 Plan: - SSI step [address] #Constipation pt had small bm yesterday following lactulose 30, additional 30 given 06/05 in the PM - lactulose 30 mg x1 - senna/docusate qd scheduled Hospital management: Lines: PIV Diet: cardiac Bowel: Senna and docusate scheduled GI prophylaxis: IV pantoprazole 40 mg QD DVT prophylaxis: Eliquis 5 mg BID Disposition: med tele, po steroids, IV diuresis, IV abx, CODE STATUS: FULL CODE Plan discussed with my attending Dr. Steward and my senior resident Dr. Sharon Garvin MD PGY1 Attending Provider Attestation/Addendum I Tod Steward MD reviewed the note and agree with the resident's assessment & plan with modifications/additions/exceptions as below. I have personally reviewed labs, imaging, home meds/prior records, examined the patient, formulated and discussed management plan with the IM team. A 70-year-old female with history of CVA, HFrEF, CAD s/p PCI, AF, DVT/PE not on any medications since past 10 months due to insurance issues admitted with COPD exacerbation, GAMA on CKD. Hemodynamically stable however on 3 L, wheezing has been improved, creatinine is improving, CRP significantly elevated. Will continue azithromycin and Rocephin for empiric coverage, will change systemic steroids to prednisone 40 mg p.o. daily, continue inhaled LABA ROCK & antimuscarinic agents, will get EKG, troponin, echocardiogram pending. Continue Eliquis for of A-fib. Will start on GDMT and uptitrate as tolerated, start on metoprolol 25 mg daily. Will add GDMT as tolerated will need aids social worker help before discharge regarding medication arrangement.
[2025-06-05 07:26] LABS: Alanine Aminotransferase < 7 U/L (10-49)
[2025-06-05] MEDS: INSULIN LISPRO (AdmeLOG) 1 UNIT/0.01 ML UNIT SC ×2 (07:40→17:01)
[2025-06-05] MEDS: APIXABAN 2.5 MG TABLET 5 MG PO ×2 (08:33→20:55)
[2025-06-05] MEDS: NIFEdipine XL 30 MG TABCR PO (08:34)
[2025-06-05] MEDS: SENNA/DOCUSATE SOD 1 TAB TABLET PO (08:36)
[2025-06-05] MEDS: cefTRIAXone/D5w 1gm IV premix 1 GM/50 ML BAG IV (08:40)
[2025-06-05] MEDS: FUROSEMIDE INJ 10 MG/ML VIAL 2 ML 40 MG IVP (08:41)
[2025-06-05] MEDS: METOPROLOL SUCCINATE XL 25 MG TABCR PO (13:02)
[2025-06-05] MEDS: LACTULOSE SYRUP 20 GM/30 ML UDC 30 GM PO (13:03)
[2025-06-05] MEDS: AZITHROMYCIN INJ 500 MG in SODIUM CHLORIDE 0.9% 250 ML 250 ML 250 MG IV (13:06)
[2025-06-05 13:52] LABS: Troponin I < 0.020 ng/mL (0.0-0.045)
[2025-06-05] MEDS: VANCOMYCIN/NS 750 MG IVPB 750 MG/150 ML BAG 120 MG IV (17:38)
[2025-06-05 18:45] LABS: Troponin I < 0.020 ng/mL (0.0-0.045)
[2025-06-06] VITALS (14 sets, daily range): BP systolic 112–149; BP diastolic 52–82; PULSE 53–100; RESP 15–96; TEMP 36.2–36.9; O2SAT 93–99; BMI 34.6
[2025-06-06 05:36] LABS: Lactate (Lactic Acid) 1.2 mMol/L (0.4-2.0)
[2025-06-06 05:38] LABS: Basophils # (Auto) 0.0 Thou/mm3 (0.0-0.2); Basophils % (Auto) 0 % (0-2.5); Eosinophils # (Auto) 0.0 Thou/mm3 (0.0-0.5); Eosinophils % (Auto) 0 % (0-10); Hematocrit 36.4 % (36.0-46.0); Hemoglobin 12.3 g/dL (12.0-16.0); Immature Granulocytes Auto 0.09 Thou/mm3 (0.00-0.00); Lymphocytes # (Auto) 0.9 Thou/mm3 (1.0-4.8); Lymphocytes % (Auto) 6 % (10-50); Mean Corpuscular HGB Conc 33.8 g/dl (31.0-37.0); Mean Corpuscular Hemoglobin 32.5 pg (25.0-35.0); Mean Corpuscular Volume 96 fL (80-100); Monocytes # (Auto) 0.4 Thou/mm3 (0.0-0.8); Monocytes % (Auto) 2 % (0-12); Neutrophils # (Auto) 15.6 Thou/mm3 (1.8-7.7); Neutrophils % (Auto) 92 % (37-80); Nucleated Red Blood Cell # 0.00 Thou/mm3 (0.00-0.00); Nucleated Red Blood Cell % 0 /100 WBC (0); Platelet Count 256 Thou/mm3 (140-440); RDW Standard Deviation 46.0 fL (36.4-46.3); Red Blood Count 3.78 Miln/mm3 (4.00-5.20); White Blood Count 17.0 Thou/mm3 (3.6-11.0)
[2025-06-06 06:28] LABS: Alanine Aminotransferase 11 U/L (10-49); Albumin, Serum 4.1 gm/dL (3.4-4.8); Albumin/Globulin Ratio 2.2 (1.2-2.2); Alkaline Phosphatase 84 U/L (46-116); Anion Gap 11 (7-16); Aspartate Amino Transferase 13 U/L (0-34); BUN/Creatinine Ratio 25 Ratio (12-20); Bilirubin,Total 0.3 mg/dL (0.3-1.2); Blood Urea Nitrogen 49 mg/dL (9-23); Calcium 8.8 mg/dL (8.3-10.6); Calcium (Corrected) 8.8 mg/dL (8.5-10.1); Carbon Dioxide 23.8 mMol/L (20.0-31.0); Chloride 107 mMol/L (98-107); Creatinine (Component) 2.0 mg/dL (0.6-1.3); Estimated Creatinine Clearance 26.5 mL/min (>60); Globulin 1.9 gm/dL (2.3-3.5); Glucose 144 mg/dL (74-106); Magnesium 2.3 mg/dL (1.6-2.6); Osmolality,Calculated 299 (275-295); Potassium 4.2 mMol/L (3.4-5.1); Sodium 142 mMol/L (136-145); Total Protein 6.0 gm/dL (5.7-8.2); eGFR 26 See Note
--- NOTE | 2025-06-06 08:00 | ESPR_ITS ---
<Statement entered by Mali Steward MD - 06/07/25 15:03> Patient seen at bedside, currently saturating on 2 L oxygen via nasal cannula. Does have significant improvement in shortness of breath and wheezing. Continues to have a productive cough. Blood cultures grew GPC and speciation is still pending will continue IV antibiotics with Vanco and ceftriaxone. Will continue DuoNebs and prednisone. Patient was seen and examined by me personally. I have directly supervised and reviewed documentation by the team resident and agree with its findings. ------- Plan of care was discussed with the attending, Dr. Marisel Steward, PGY-2 Documentation for date of: 06/06/25 Subjective Subjective Interval history: Ms Galvan is here for copd exaccerbation and chf exaccerbation she reports feeling unwell overnight, with increased wheezing and shortness of breath. she has a cough with some productive sputum yellowish in color, 1/2 bcx with gpc, started on vanc yesterday sandy repeat bcx today, pending results. on azithro and ctx (day 4 of ) ECHO read with ef 35-40% continues on metop 25 for GDMT Exam Vital Signs Temp Pulse Resp BP Pulse Ox O2 Del Method O2 Flow Rate 98 F 57 L 18 147/71 H 95 Room Air 2 06/06/25 07:17 06/06/25 07:17 06/06/25 07:17 06/06/25 07:17 06/06/25 07:17 06/06/25 07:17 06/06/25 00:00 Narrative Exam GENERAL: AOx3, no acute distress HEENT: mucous membranes moist, bilateral sclera anicteric CARDIOVASCULAR: regular rate and rhythm, S1/S2 present, no murmurs appreciated PULMONARY: Diffuse wheezing bilaterally, ABDOMINAL: soft, non-tender, non-distended, no rebound/guarding, bowel sounds present EXTREMITIES: no peripheral edema SKIN: warm and dry, intact, no rashes NEURO: CN II-XII grossly intact, no focal deficits, alert, following commands Objective Labs 06/07/25 05:15 06/07/25 05:15 Labs: Laboratory Results - last 24 hr 06/05/25 06/05/25 06/06/25 12:45 18:18 04:49 WBC 17.0 H RBC 3.78 L Hgb 12.3 Hct 36.4 MCV 96 MCH 32.5 MCHC 33.8 RDW Std Deviation 46.0 Plt Count 256 Neut % (Auto) 92 H Lymph % (Auto) 6 L [place] % (Auto) 2 Eos % (Auto) 0 Baso % (Auto) 0 Neut # (Auto) 15.6 H Lymph # (Auto) 0.9 L [place] # (Auto) 0.4 Eos # (Auto) 0.0 Baso # (Auto) 0.0 Immature Gran # (Auto) 0.09 H Absolute Nucleated RBC 0.00 Immature Gran % 1 H Nucleated RBC % 0 Sodium 142 Potassium 4.2 Chloride 107 Carbon Dioxide 23.8 Anion Gap 11 BUN 49 H Creatinine 2.0 H Estim Creat Clear Calc 26.5 L eGFR 26 L BUN/Creatinine Ratio 25 H Glucose 144 H Calculated Osmolality 299 H Lactic Acid 1.2 Calcium 8.8 Corrected Calcium 8.8 Magnesium 2.3 Total Bilirubin 0.3 AST 13 ALT 11 Alkaline Phosphatase 84 Troponin I < 0.020 < 0.020 Total Protein 6.0 Albumin 4.1 D Globulin 1.9 L Albumin/Globulin Ratio 2.2 ABG Interpretation ABG results: 06/03/25 15:47 ABG pH 7.42 ABG pCO2 35 ABG pO2 70 L ABG HCO3 23 ABG O2 Saturation 95 ABG Base Excess -1 Quality Measures Quality Measures VTE prophylaxis Advance care planning discussed with:: patient Assessment & Plan Assessment Current Active Medications: Generic Name Dose Route Start Last Admin Trade Name Freq PRN Reason Stop Dose Admin Acetaminophen 650 mg 06/03/25 17:55 06/04/25 13:34 Acetaminophen 325 Mg Tablet PO 07/03/25 17:54 650 mg Q6H PRN Administration Fever >100.4 or pain Albuterol/Ipratropium 3 ml 06/04/25 16:03 Albuterol/Ipratropium (Duoneb) Rt Analisa 3 Ml Nebu INH 07/04/25 18:59 Q4HRRT PRN SHORTNESS OF BREATH Apixaban 5 mg 06/03/25 21:00 06/05/25 20:55 Apixaban 2.5 Mg Tablet PO 06/24/25 20:59 5 mg BID KELSEY Administration Dextrose 25 ml 06/03/25 18:39 Dextrose 50%-Water Inj 50 Ml Syringe IV 07/03/25 18:38 Q15MIN PRN BG 50-70 responsive npo pt Dextrose 50 ml 06/03/25 18:39 Dextrose 50%-Water Inj 50 Ml Syringe IV 07/03/25 18:38 Q15MIN PRN BG <50 OR BG <70 & pt unresponsive Furosemide 40 mg 06/06/25 09:00 Furosemide Inj 10 Mg/Ml Vial 2 Ml IVP 07/06/25 08:59 QDAY KELSEY Glucagon 1 mg 06/03/25 18:39 Glucagon Inj 1 Mg Vial IM Q15MIN PRN BG <70, and no IV access Hydralazine HCl 10 mg 06/03/25 18:38 06/03/25 18:49 Hydralazine Inj 20 Mg/Ml Vial IVP 07/03/25 18:44 10 mg Q2H PRN Administration SBP >180 or DSP >110 Azithromycin 500 mg/ Sodium 250 mls @ 250 mls/hr 06/04/25 14:00 06/05/25 13:06 Chloride IV 06/11/25 13:59 250 mls/hr QDAY@1400 KELSEY Administration Ceftriaxone Sodium/Dextrose 1 gm in 50 mls @ 100 mls/hr 06/04/25 13:03 06/05/25 08:40 Rocephin/D5w 1gm Iv Premix IV 06/11/25 13:02 100 mls/hr QDAY KELSEY Administration Vancomycin/Sodium Chloride 750 mg in 150 mls @ 120 mls/hr 06/06/25 15:00 Vancomycin/Ns 750 Mg Ivpb IV 06/13/25 14:59 QDAY@1500 KELSEY Insulin Human Lispro 0 unit 06/04/25 07:30 06/05/25 17:01 Insulin Lispro (Admelog) 1 Unit/0.01 Ml Unit SC 07/04/25 07:29 1 unit AC KELSEY Administration Protocol Metoprolol Succinate 25 mg 06/05/25 12:15 06/05/25 13:02 Metoprolol Succinate Xl 25 Mg Tabcr PO 07/05/25 12:14 25 mg QDAY KELSEY Administration Nifedipine 30 mg 06/04/25 09:00 06/05/25 08:34 Nifedipine Xl 30 Mg Tabcr PO 07/04/25 08:59 30 mg QDAY KELSEY Administration Ondansetron HCl 4 mg 06/03/25 17:55 Ondansetron Inj 2 Mg/Ml Inj 2 Ml IVP 07/03/25 17:54 Q6H PRN NAUSEA OR VOMITING Protocol Pantoprazole Sodium 40 mg 06/04/25 09:00 06/05/25 08:39 Pantoprazole Inj 40 Mg Vial IVP 07/04/25 08:59 40 mg QDAY KELSEY Administration Pharmacy Consult 1 each 06/05/25 16:30 Vancomycin Pharmacy To Dose 1 Each Each IV 07/05/25 16:29 QDAY PRN PROTOCOL Prednisone 40 mg 06/05/25 12:15 06/05/25 13:03 Prednisone 20 Mg Tablet PO 06/12/25 12:06 40 mg QDAY KELSEY Administration Sennosides 1 tab 06/06/25 09:00 Senna/Docusate Sod 1 Tab Tablet PO 07/06/25 08:59 QDAY KELSEY Protocol Sodium Chloride 9 ml 06/03/25 15:37 Sodium Chloride Rt Analisa 0.9% 3 Ml Nebu INH 07/03/25 15:36 PRN PRN SOLN Plan Augusto Galvan 70F pmhx significant for CKD, heart failure unknown EF, CVA 2014 with no residual deficits, CAD s/p 3 stents in HTN, COPD, and 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 found to have 1/2 gpc bacteremia, started on vanco. pending repeat cultures #Acute hypoxic respiratory failure 2/2 #COPD exacerbation, not on home O2. #CHF exacerbation, improved #HFrEF (35-40% from 06/03) #Lactic acidosis Presents with 5 days of worsening shortness of breath with severe orthopnea. Does not use rescue daily inhaler for COPD. Endorses PND and chest tightness 3 days prior to admission. No PND or orthopnea prior. Was diagnosed with heart failure, does not note EF, takes Entresto and Lasix 60 mg daily and another 60 mg as needed if leg swelling does not improve. Currently, no JVD or leg edema however with crackles bilaterally with wheezing. On admission, lactic acid 2.7, troponins negative, CRP 2.9, BNP 142 Pro-Javad negative. Concern for pneumonia as patient is being hospitalized for COPD exacerbation, low threshold to discontinue. Ddx: likely 2/2 COPD and CHF exacerbation. Ceftriaxone (06/03) troponins remain negative Plan: - EKG repeat with LBBB, no new infarct. - DuoNebs q6h, with q2h prn - Azithromycin (06/03- ) 5- 7 day course intended - Ceftriaxone (06/04- ) 5-7 day course intended - IV lasix 40 mg QD, strict I&Os, daily weights, avoid BB - Prednisone 40 po qd - GDMT: metoprolol succs 25 qd (HR 57) - ECHO : aortic valve poorly visualized, ef 35-40%, EF #1/2 GPC Bacteremia, speciation pending Bcx from 06/03 with 1/2 tubes growing GPC Plan - Start Vanco (06/05- ) deescalate as indicated - f/u speciation - repeat Bcx #Hypertensive urgency, resolved #Hx of HTN Patient does not remember what the blood pressure machine takes at home. Plan: - Caution with BB as patient is in COPD exacerbation - Nifedipine XL 30 mg QD - Hydralazine 10 mg q2h prn if SBP >180 and/or DSP >110 #GAMA? on CKD Admission Cr 2.5 GFR 20, unclear baseline or GAMA Cr now 2.0 Plan: - CTM Cr - Caution with fluids as patient has CHF - Consider Ulytes if Cr does not improve - renal US with small kidneys bilaterally, and with cortical thinning and scar #Hx of extensive multiple DVTs and PEs on lifetime Eliquis #CAD s/p 3 stents, 2000s #CVA ~2014 with no residual deficits #suspected Afib Per history. 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 pt has hx of DVT and PE, but was not taking medications for the past several months 2/2 lapse in insurance coverage. Plan: - Continue Eliquis 5 mg BID - CTM - ASA 81 mg qd - cont atorvastatin 20 #Hyperglycemia Likely 2/2 steroids as a1c 5.2 Plan: - SSI step [address] #Constipation - resolved Plan - senna/docusate qd scheduled Hospital management: Lines: PIV Diet: cardiac Bowel: Senna and docusate scheduled GI prophylaxis: IV pantoprazole 40 mg QD DVT prophylaxis: Eliquis 5 mg BID Disposition: med tele, po steroids, IV diuresis, IV abx, CODE STATUS: FULL CODE Plan discussed with my attending Dr. Joiner and my senior resident Dr. Sharon Garvin MD PGY1 Attending Provider Attestation/Addendum I, Janki Joiner DO, attest that I was physically present for the dsouza portions of the service and evaluated the patient with the resident and I reviewed and discussed the case with the resident and agree with the resident's findings and plans of care as documented above Patient seen and eval this a.m. Patient states that she is feeling much improved. She is currently on room air, but continues to have some diminished breath sounds in bilateral lung donato. Will schedule breathing treatments every 4 hours and continue with antibiotics. Patient was noted to have positive GPC in her blood cultures 1 out of 2 from presentation. Pending repeat blood cultures at this time. She remains on vancomycin, azithromycin and Rocephin for empiric coverage of atypical, gram-negative pneumonia as well as GPC bacteremia versus contamination. Will continue with prednisone and breathing tx at this time. Continue to f/u with cultures
[2025-06-06] MEDS: APIXABAN 2.5 MG TABLET 5 MG PO ×2 (09:42→21:00)
[2025-06-06] MEDS: SENNA/DOCUSATE SOD 1 TAB TABLET PO (09:42)
[2025-06-06] MEDS: METOPROLOL SUCCINATE XL 25 MG TABCR PO (09:43)
[2025-06-06] MEDS: NIFEdipine XL 30 MG TABCR PO (09:44)
[2025-06-06] MEDS: FUROSEMIDE INJ 10 MG/ML VIAL 2 ML 40 MG IVP (09:45)
[2025-06-06] MEDS: cefTRIAXone/D5w 1gm IV premix 1 GM/50 ML BAG IV (09:46)
--- NOTE | 2025-06-06 10:29 | PC.NURSE ---
Patient requested to ambulate with only. She refused staff to assist with ambulation. Patient educated on safety and fall precautions. Patient and family verbalized understanding.
[2025-06-06] MEDS: INSULIN LISPRO (AdmeLOG) 1 UNIT/0.01 ML UNIT SC ×2 (11:28→17:13)
[2025-06-06] MEDS: ALBUTEROL/IPRATROPIUM (Duoneb) RT SOL 3 ML NEBU INH ×2 (12:43→20:07)
[2025-06-06] MEDS: AZITHROMYCIN INJ 500 MG in SODIUM CHLORIDE 0.9% 250 ML 250 ML 250 MG IV (13:50)
--- NOTE | 2025-06-06 14:50 | PC.SS ---
Rounding: GPC Bacterimia, on IV ABX DC plan home
[2025-06-06] MEDS: VANCOMYCIN/NS 750 MG IVPB 750 MG/150 ML BAG 120 MG IV (14:57)
[2025-06-06] MEDS: BENZONATATE 100 MG CAPSULE PO (19:28)
--- NOTE | 2025-06-06 22:29 | PC.NURSE ---
Patient is refusing the bed alarm, call light is within reach at bedside.
[2025-06-07] VITALS (14 sets, daily range): BP systolic 103–150; BP diastolic 54–72; PULSE 48–98; RESP 16–98; TEMP 36.1–37; O2SAT 95–99
[2025-06-07] MEDS: ALBUTEROL/IPRATROPIUM (Duoneb) RT SOL 3 ML NEBU INH ×3 (01:07→18:39)
[2025-06-07 05:41] LABS: Basophils # (Auto) 0.0 Thou/mm3 (0.0-0.2); Basophils % (Auto) 0 % (0-2.5); Eosinophils # (Auto) 0.0 Thou/mm3 (0.0-0.5); Eosinophils % (Auto) 0 % (0-10); Hematocrit 37.0 % (36.0-46.0); Hemoglobin 12.3 g/dL (12.0-16.0); Immature Granulocytes Auto 0.07 Thou/mm3 (0.00-0.00); Lymphocytes # (Auto) 2.1 Thou/mm3 (1.0-4.8); Lymphocytes % (Auto) 16 % (10-50); Mean Corpuscular HGB Conc 33.2 g/dl (31.0-37.0); Mean Corpuscular Hemoglobin 32.0 pg (25.0-35.0); Mean Corpuscular Volume 96 fL (80-100); Monocytes # (Auto) 0.7 Thou/mm3 (0.0-0.8); Monocytes % (Auto) 6 % (0-12); Neutrophils # (Auto) 10.1 Thou/mm3 (1.8-7.7); Neutrophils % (Auto) 78 % (37-80); Nucleated Red Blood Cell # 0.00 Thou/mm3 (0.00-0.00); Nucleated Red Blood Cell % 0 /100 WBC (0); Platelet Count 226 Thou/mm3 (140-440); RDW Standard Deviation 45.9 fL (36.4-46.3); Red Blood Count 3.84 Miln/mm3 (4.00-5.20); White Blood Count 13.0 Thou/mm3 (3.6-11.0)
[2025-06-07 06:03] LABS: Alanine Aminotransferase 17 U/L (10-49); Albumin, Serum 4.3 gm/dL (3.4-4.8); Albumin/Globulin Ratio 2.5 (1.2-2.2); Alkaline Phosphatase 80 U/L (46-116); Anion Gap 10 (7-16); Aspartate Amino Transferase 15 U/L (0-34); BUN/Creatinine Ratio 23 Ratio (12-20); Bilirubin,Total 0.3 mg/dL (0.3-1.2); Blood Urea Nitrogen 42 mg/dL (9-23); Calcium 8.9 mg/dL (8.3-10.6); Calcium (Corrected) 8.9 mg/dL (8.5-10.1); Carbon Dioxide 27.8 mMol/L (20.0-31.0); Chloride 107 mMol/L (98-107); Creatinine (Component) 1.8 mg/dL (0.6-1.3); Estimated Creatinine Clearance 28.8 mL/min (>60); Globulin 1.7 gm/dL (2.3-3.5); Glucose 139 mg/dL (74-106); Magnesium 2.4 mg/dL (1.6-2.6); Osmolality,Calculated 301 (275-295); Potassium 4.1 mMol/L (3.4-5.1); Sodium 145 mMol/L (136-145); Total Protein 6.0 gm/dL (5.7-8.2); eGFR 30 See Note
--- NOTE | 2025-06-07 08:21 | ESPR_ITS ---
<Statement entered by Mali Steward MD - 06/07/25 15:12> Patient was seen at bedside. Currently saturating 96% on room air. Patient has significant improvement in shortness of breath and there is mild wheezing bilaterally on auscultation. Will increase prednisone to twice daily and continue DuoNebs. GPC culture speciation is pending currently will still continue IV antibiotics with ceftriaxone and vancomycin. Patient will need albuterol rescue inhaler on discharge as well as DuoNebs. Patient is again counseled on smoking cessation. Echocardiogram showed EF 35 to 40%, pt is started on metoprolol and lasix. Pt will need outpatient follow up with seed sales manager. Patient was seen and examined by me personally. I have directly supervised and reviewed documentation by the team resident and agree with its findings. ------- Plan of care was discussed with the attending, Dr. Marisel Steward, PGY-2 Documentation for date of: 06/07/25 Subjective Subjective Interval history: Repeat bcx with NGTD @ 24 hrs possible d/c tomorrow continue duonebs and increase steroids to BID Exam Vital Signs Temp Pulse Resp BP Pulse Ox O2 Del Method O2 Flow Rate 97.9 F 55 L 18 121/54 L 98 Room Air 2 06/07/25 07:07 06/07/25 07:07 06/07/25 07:07 06/07/25 07:07 06/07/25 06:31 06/07/25 07:07 06/06/25 00:00 Narrative Exam GENERAL: AOx3, no acute distress HEENT: mucous membranes moist, bilateral sclera anicteric CARDIOVASCULAR: regular rate and rhythm, S1/S2 present, no murmurs appreciated PULMONARY: Diffuse expiratory wheezing bilaterally, and crackles in the mid to low lung donato bilaterally. ABDOMINAL: soft, non-tender, non-distended, no rebound/guarding, bowel sounds present EXTREMITIES: no peripheral edema SKIN: warm and dry, intact, no rashes NEURO: CN II-XII grossly intact, no focal deficits, alert, following commands Objective Labs 06/07/25 05:15 06/07/25 05:15 Labs: Laboratory Results - last 24 hr 06/07/25 05:15 WBC 13.0 H RBC 3.84 L Hgb 12.3 Hct 37.0 MCV 96 MCH 32.0 MCHC 33.2 RDW Std Deviation 45.9 Plt Count 226 D Neut % (Auto) 78 Lymph % (Auto) 16 Mcminn % (Auto) 6 Eos % (Auto) 0 Baso % (Auto) 0 Neut # (Auto) 10.1 H Lymph # (Auto) 2.1 Mcminn # (Auto) 0.7 Eos # (Auto) 0.0 Baso # (Auto) 0.0 Immature Gran # (Auto) 0.07 H Absolute Nucleated RBC 0.00 Immature Gran % 1 H Nucleated RBC % 0 Sodium 145 Potassium 4.1 Chloride 107 Carbon Dioxide 27.8 Anion Gap 10 BUN 42 H Creatinine 1.8 H Estim Creat Clear Calc 28.8 L eGFR 30 L BUN/Creatinine Ratio 23 H Glucose 139 H Calculated Osmolality 301 H Calcium 8.9 Corrected Calcium 8.9 Magnesium 2.4 Total Bilirubin 0.3 AST 15 ALT 17 Alkaline Phosphatase 80 Total Protein 6.0 Albumin 4.3 Globulin 1.7 L Albumin/Globulin Ratio 2.5 H ABG Interpretation ABG results: 06/03/25 15:47 ABG pH 7.42 ABG pCO2 35 ABG pO2 70 L ABG HCO3 23 ABG O2 Saturation 95 ABG Base Excess -1 Quality Measures Quality Measures VTE prophylaxis Advance care planning discussed with:: patient and spouse Assessment & Plan Assessment Current Active Medications: Generic Name Dose Route Start Last Admin Trade Name Freq PRN Reason Stop Dose Admin Acetaminophen 650 mg 06/03/25 17:55 06/04/25 13:34 Acetaminophen 325 Mg Tablet PO 07/03/25 17:54 650 mg Q6H PRN Administration Fever >100.4 or pain Albuterol/Ipratropium 3 ml 06/06/25 13:00 06/07/25 06:31 Albuterol/Ipratropium (Duoneb) Rt Analisa 3 Ml Nebu INH 07/06/25 12:59 Not Given Q6HRRT KELSEY Apixaban 5 mg 06/03/25 21:00 06/06/25 21:00 Apixaban 2.5 Mg Tablet PO 06/24/25 20:59 5 mg BID KELSEY Administration Benzonatate 100 mg 06/06/25 09:43 06/06/25 19:28 Benzonatate 100 Mg Capsule PO 07/06/25 09:42 100 mg Q8HR PRN Administration COUGH Protocol Dextrose 25 ml 06/03/25 18:39 Dextrose 50%-Water Inj 50 Ml Syringe IV 07/03/25 18:38 Q15MIN PRN BG 50-70 responsive npo pt Dextrose 50 ml 06/03/25 18:39 Dextrose 50%-Water Inj 50 Ml Syringe IV 07/03/25 18:38 Q15MIN PRN BG <50 OR BG <70 & pt unresponsive Furosemide 40 mg 06/06/25 09:00 06/06/25 09:45 Furosemide Inj 10 Mg/Ml Vial 2 Ml IVP 07/06/25 08:59 40 mg QDAY KELSEY Administration Glucagon 1 mg 06/03/25 18:39 Glucagon Inj 1 Mg Vial IM Q15MIN PRN BG <70, and no IV access Hydralazine HCl 10 mg 06/03/25 18:38 06/03/25 18:49 Hydralazine Inj 20 Mg/Ml Vial IVP 07/03/25 18:44 10 mg Q2H PRN Administration SBP >180 or DSP >110 Azithromycin 500 mg/ Sodium 250 mls @ 250 mls/hr 06/04/25 14:00 06/06/25 13:50 Chloride IV 06/11/25 13:59 250 mls/hr QDAY@1400 KELSEY Administration Ceftriaxone Sodium/Dextrose 1 gm in 50 mls @ 100 mls/hr 06/04/25 13:03 06/06/25 09:46 Rocephin/D5w 1gm Iv Premix IV 06/11/25 13:02 100 mls/hr QDAY KELSEY Administration Vancomycin/Sodium Chloride 750 mg in 150 mls @ 120 mls/hr 06/06/25 15:00 06/06/25 14:57 Vancomycin/Ns 750 Mg Ivpb IV 06/13/25 14:59 120 mls/hr QDAY@1500 KELSEY Administration Protocol Insulin Human Lispro 0 unit 06/04/25 07:30 06/07/25 07:30 Insulin Lispro (Admelog) 1 Unit/0.01 Ml Unit SC 07/04/25 07:29 Not Given [facility] Protocol Metoprolol Succinate 25 mg 06/05/25 12:15 06/06/25 09:43 Metoprolol Succinate Xl 25 Mg Tabcr PO 07/05/25 12:14 25 mg QDAY KELSEY Administration Nifedipine 30 mg 06/04/25 09:00 06/06/25 09:44 Nifedipine Xl 30 Mg Tabcr PO 07/04/25 08:59 30 mg QDAY KELSEY Administration Ondansetron HCl 4 mg 06/03/25 17:55 Ondansetron Inj 2 Mg/Ml Inj 2 Ml IVP 07/03/25 17:54 Q6H PRN NAUSEA OR VOMITING Protocol Pantoprazole Sodium 40 mg 06/04/25 09:00 06/06/25 09:44 Pantoprazole Inj 40 Mg Vial IVP 07/04/25 08:59 40 mg QDAY KELSEY Administration Pharmacy Consult 1 each 06/05/25 16:30 Vancomycin Pharmacy To Dose 1 Each Each IV 07/05/25 16:29 QDAY PRN PROTOCOL Prednisone 40 mg 06/05/25 12:15 06/06/25 09:42 Prednisone 20 Mg Tablet PO 06/12/25 12:06 40 mg QDAY KELSEY Administration Sennosides 1 tab 06/06/25 09:00 06/06/25 09:42 Senna/Docusate Sod 1 Tab Tablet PO 07/06/25 08:59 1 tab QDAY KELSEY Administration Protocol Sodium Chloride 9 ml 06/03/25 15:37 Sodium Chloride Rt Analisa 0.9% 3 Ml Nebu INH 07/03/25 15:36 PRN PRN SOLN Plan [place] 70F pmhx significant for CKD, heart failure unknown EF, CVA 2014 with no residual deficits, CAD s/p 3 stents in HTN, COPD, and 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 found to have 1/2 gpc bacteremia, started on vanco. repeat cultures NGTD @ 24 hrs, will follow up tomorrow. #Acute hypoxic respiratory failure 2/2 #COPD exacerbation, not on home O2. #Bilateral CAP #CHF exacerbation, improved #HFrEF (35-40% from 06/03) #Lactic acidosis Presents with 5 days of worsening shortness of breath with severe orthopnea. Does not use rescue daily inhaler for COPD. Endorses PND and chest tightness 3 days prior to admission. No PND or orthopnea prior. Was diagnosed with heart failure, does not note EF, takes Entresto and Lasix 60 mg daily and another 60 mg as needed if leg swelling does not improve. Currently, no JVD or leg edema however with crackles bilaterally with wheezing. On admission, lactic acid 2.7, troponins negative, CRP 2.9, BNP 142 Pro-Javad negative. Concern for pneumonia as patient is being hospitalized for COPD exacerbation, low threshold to discontinue. Ddx: likely 2/2 COPD and CHF exacerbation. Ceftriaxone (06/03) troponins remain negative on exam crackles in the mid to low lung donato, has continued on abx. on day 4 of 5 of azithro and ctx. Plan: - 1800 fluid restriction - EKG repeat with LBBB, no new infarct. - DuoNebs q6h, with q2h prn - Azithromycin (06/03- ) 5- 7 day course intended - Ceftriaxone (06/04- ) 5-7 day course intended - IV lasix 40 mg QD, strict I&Os, daily weights, avoid BB - Prednisone 40 po qd --> BID given increased wheezing today on exam - GDMT: metoprolol succs 25 qd (HR 57) - ECHO : aortic valve poorly visualized, ef 35-40%, EF #1/2 GPC Bacteremia, speciation pending Bcx from 06/03 with 1/2 tubes growing GPC Plan - Start Vanco (06/05- ) deescalate as indicated - f/u speciation - repeat Bcx with ngtd @ 24 hrs #Hypertensive urgency, resolved #Hx of HTN Patient does not remember what the blood pressure machine takes at home. Plan: - Caution with BB as patient is in COPD exacerbation - Nifedipine XL 30 mg QD - Hydralazine 10 mg q2h prn if SBP >180 and/or DSP >110 #GAMA? on CKD- improving Admission Cr 2.5 GFR 20, unclear baseline Cr 2.0 -->1.8 Plan: - CTM Cr - Caution with fluids as patient has CHF - renal US with small kidneys bilaterally, and with cortical thinning and scar #Hx of extensive multiple DVTs and PEs on lifetime Eliquis #CAD s/p 3 stents, 1999s #CVA ~2014 with no residual deficits #suspected Afib Per history. pt was followed by seed sales manager in [place] previoulsy, suspect hx of afib. pt has hx of DVT and PE, but was not taking medications for the past several months 2/2 lapse in insurance coverage. Plan: - Continue Eliquis 5 mg BID - CTM - ASA 81 mg qd - cont atorvastatin 20 #Hyperglycemia Likely 2/2 steroids as a1c 5.2 Plan: - SSI step [address] #Constipation - resolved Plan - senna/docusate qd scheduled Hospital management: Lines: PIV Diet: cardiac with 1800 cc fluid restriction. Bowel: Senna and docusate scheduled GI prophylaxis: IV pantoprazole 40 mg QD DVT prophylaxis: Eliquis 5 mg BID Disposition: med tele, po steroids, IV diuresis, IV abx, and breathing treatments CODE STATUS: FULL CODE Plan discussed with my attending Dr. Joiner and my senior resident Dr. Sharon Garvin MD PGY1 Attending Provider Attestation/Addendum I, Janki Joiner, DO, attest that I was physically present for the dsouza portions of the service and evaluated the patient with the resident and I reviewed and discussed the case with the resident and agree with the resident's findings and plans of care as documented above Patient seen and evaluated this AM. She continues to have some scattered wheezing noted in b/l lung donato. Nevertheless, patient states she is feeling improved. Will decrease breathing treatments to q6h. Will change prednisone to 40mg PO BID. WIll continue wt antibiotics. If repeat blood cultures are negative, gpc likely contamination and patient can be discharged home and vancomycin can be discontinued. Mild crackles noted in right lung field.
[2025-06-07] MEDS: NIFEdipine XL 30 MG TABCR PO (09:00)
[2025-06-07] MEDS: FUROSEMIDE INJ 10 MG/ML VIAL 2 ML 40 MG IVP (09:08)
[2025-06-07] MEDS: cefTRIAXone/D5w 1gm IV premix 1 GM/50 ML BAG IV (09:09)
[2025-06-07] MEDS: APIXABAN 2.5 MG TABLET 5 MG PO ×2 (09:09→21:08)
[2025-06-07] MEDS: SENNA/DOCUSATE SOD 1 TAB TABLET PO (09:10)
[2025-06-07] MEDS: LACTULOSE SYRUP 20 GM/30 ML UDC 30 GM PO (09:48)
[2025-06-07] MEDS: BENZONATATE 100 MG CAPSULE PO ×2 (09:48→18:41)
[2025-06-07] MEDS: AZITHROMYCIN INJ 500 MG in SODIUM CHLORIDE 0.9% 250 ML 250 ML 250 MG IV (13:12)
--- NOTE | 2025-06-07 14:57 | PC.SS ---
rounding note: on i.v. antibiotics.Cultures pending
[2025-06-07] MEDS: VANCOMYCIN/NS 750 MG IVPB 750 MG/150 ML BAG 120 MG IV (15:39)
[2025-06-07] MEDS: INSULIN LISPRO (AdmeLOG) 1 UNIT/0.01 ML UNIT SC (17:14)
[2025-06-07] MEDS: ZOLPIDEM 5 MG TABLET PO (22:23)
[2025-06-08] VITALS (11 sets, daily range): BP systolic 116–162; BP diastolic 58–79; PULSE 54–83; RESP 17–93; TEMP 36.6–36.9; O2SAT 94–100
[2025-06-08] MEDS: ALBUTEROL/IPRATROPIUM (Duoneb) RT SOL 3 ML NEBU INH ×2 (00:15→07:06)
[2025-06-08 06:11] LABS: Alanine Aminotransferase 54 U/L (10-49); Albumin, Serum 4.4 gm/dL (3.4-4.8); Albumin/Globulin Ratio 2.4 (1.2-2.2); Alkaline Phosphatase 86 U/L (46-116); Anion Gap 11 (7-16); Aspartate Amino Transferase 27 U/L (0-34); BUN/Creatinine Ratio 21 Ratio (12-20); Bilirubin,Total 0.3 mg/dL (0.3-1.2); Blood Urea Nitrogen 32 mg/dL (9-23); Calcium 9.1 mg/dL (8.3-10.6); Calcium (Corrected) 9.1 mg/dL (8.5-10.1); Carbon Dioxide 25.3 mMol/L (20.0-31.0); Chloride 106 mMol/L (98-107); Creatinine (Component) 1.5 mg/dL (0.6-1.3); Estimated Creatinine Clearance 34.6 mL/min (>60); Globulin 1.8 gm/dL (2.3-3.5); Glucose 193 mg/dL (74-106); Magnesium 2.2 mg/dL (1.6-2.6); Osmolality,Calculated 295 (275-295); Potassium 4.4 mMol/L (3.4-5.1); Sodium 142 mMol/L (136-145); Total Protein 6.2 gm/dL (5.7-8.2); eGFR 37 See Note
[2025-06-08] MEDS: INSULIN LISPRO (AdmeLOG) 1 UNIT/0.01 ML UNIT SC (07:34)
[2025-06-08 08:30] LABS: Basophils # (Auto) 0.0 Thou/mm3 (0.0-0.2); Basophils % (Auto) 0 % (0-2.5); Eosinophils # (Auto) 0.0 Thou/mm3 (0.0-0.5); Eosinophils % (Auto) 0 % (0-10); Hematocrit 37.6 % (36.0-46.0); Hemoglobin 12.7 g/dL (12.0-16.0); Immature Granulocytes Auto 0.08 Thou/mm3 (0.00-0.00); Lymphocytes # (Auto) 0.7 Thou/mm3 (1.0-4.8); Lymphocytes % (Auto) 6 % (10-50); Mean Corpuscular HGB Conc 33.8 g/dl (31.0-37.0); Mean Corpuscular Hemoglobin 31.7 pg (25.0-35.0); Mean Corpuscular Volume 94 fL (80-100); Monocytes # (Auto) 0.2 Thou/mm3 (0.0-0.8); Monocytes % (Auto) 2 % (0-12); Neutrophils # (Auto) 9.8 Thou/mm3 (1.8-7.7); Neutrophils % (Auto) 91 % (37-80); Nucleated Red Blood Cell # 0.00 Thou/mm3 (0.00-0.00); Nucleated Red Blood Cell % 0 /100 WBC (0); Platelet Count 217 Thou/mm3 (140-440); RDW Standard Deviation 43.7 fL (36.4-46.3); Red Blood Count 4.01 Miln/mm3 (4.00-5.20); White Blood Count 10.7 Thou/mm3 (3.6-11.0)
[2025-06-08] MEDS: FUROSEMIDE INJ 10 MG/ML VIAL 2 ML 40 MG IVP (08:47)
[2025-06-08] MEDS: cefTRIAXone/D5w 1gm IV premix 1 GM/50 ML BAG IV (08:47)
--- NOTE | 2025-06-08 09:39 | ESDS_ITS ---
<Statement entered by Janki Joiner DO - 06/09/25 07:46> I, Janki Joiner DO, attest that I was physically present for the dsouza portions of the service and evaluated the patient with the resident and I reviewed and discussed the case with the resident and agree with the resident's findings and plans of care as documented above Planned Discharge Date 06/08/25 DS: Providers Provider Date of admission: 06/03/25 17:56 Primary care physician: Physician No Primary/Family Admitting Provider: Janki Joiner DO Attending Provider on Admission: Janki Joiner DO Consults: 06/03/25 15:37 Referral Respiratory Therapy Stat Comment: BiPAP Attending Provider on DC: Alesha Garvin MD Discharging Provider: Alesha Garvin MD DS: Diagnosis Problem List Completed Was Problem List Reviewed/Reconciled?: Yes Hospital Course Hospital Course Hospital course: Hospital Course Ms. Galvan 70F pmhx significant for CKD, heart failure unknown EF, CVA 2014 with no residual deficits, CAD s/p 3 stents in HTN, COPD(not on home oxygen), and history of multiple DVT and PE on lifetime Eliquis, who initially presented with worsening shortness of breath and orthopnea, admitted for COPD and CHF exacerbation. She was treated with IV steroids and breathing treatments and started on metoprolol for GDMT, which she tolerated well. She had previously been lost to follow up given a lapse in her medical insurance. On this admission she was treated prophylactically for CAP given the COPD exaccerbation and her symptoms improved. TTE was performed which demonstrated HFrEF with EF 35-40%. Her COPD and CHF exaccerbations improved and she was able to tolerate activity. She was stable and medically cleared for discharge. She was provided the number to the [facility] so she can reestablish care. Diagnoses #Acute hypoxic respiratory failure 2/2 #COPD exacerbation, not on home O2. #CHF exacerbation, improved #HFrEF (35-40% from 06/03) #Hypertensive urgency, resolved #Hx of HTN #CKD #Hx of extensive multiple DVTs and PEs on lifetime Eliquis #CAD s/p 3 stents, #CVA ~2014 with no residual deficits #suspected Afib #hyperglycemia 2/2 steroids Discharge instructions -Follow up with Dr. Garvin post discharge, by calling the [facility] [phone] -You have been prescribed steroid dose pack, please complete it as directed -You have been prescribed a blood thinner, which can cause bleeding so please be careful with falls, if you have an injury or fall please immediately go to the ED -Follow up with [facility] outpatient -Continue rest of medications as prescribed -Return to the ED or call EMS if symptoms return and/or worsen Plan discussed with my attending Dr. Joiner and my senior resident Dr. Sharon Garvin MD PGY1 Time Spent with Patient Time attestation: Total time spent providing and/or coordinating discharge services: Time spent: Greater than 30 minutes Exam Vital Signs Temp Pulse Resp BP Pulse Ox O2 Del Method O2 Flow Rate 97.9 F 83 18 119/68 98 Room Air 2 06/08/25 07:30 06/08/25 08:47 06/08/25 07:30 06/08/25 08:47 06/08/25 07:30 06/08/25 07:30 06/06/25 00:00 Narrative Exam GENERAL: AOx3, no acute distress HEENT: mucous membranes moist bilateral sclera anicteric CARDIOVASCULAR: regular rate and rhythm, S1/S2 present, no murmurs appreciated PULMONARY:bilatteral wheezing much improved from prior, lungs sound more clear to auscultation. ABDOMINAL: soft, non-tender, non-distended, no rebound/guarding, bowel sounds present EXTREMITIES: no peripheral edema SKIN: warm and dry, intact, no rashes NEURO: CN II-XII grossly intact, no focal deficits, alert, following commands Discharge Plan Plan Patient Disposition: HOME (Self Care) Patient condition on transfer: Stable Care Plan Goals: -Follow up with Dr. Garvin post discharge, by calling the [facility] [phone] -You have been prescribed steroid dose pack, please complete it as directed -You have been prescribed a blood thinner, which can cause bleeding so please be careful with falls, if you have an injury or fall please immediately go to the ED -Follow up with [facility] outpatient -Continue rest of medications as prescribed -Return to the ED or call EMS if symptoms return and/or worsen Prescriptions/Referrals Prescriptions/Med Rec: New nifedipine 30 mg Tablet Extended Release 24hr 30 mg PO QDAY 30 Days Qty: 30 0RF metoprolol succinate 25 mg Tablet Extended Release 24 Hr 25 mg PO QDAY 30 Days Qty: 30 0RF albuterol sulfate 90 mcg/actuation aerosol powdr breath activated 2 inh inhalation Q6H PRN (Reason: shortness of breath or wheezing) Qty: 1 0RF apixaban 5 mg tablet 5 mg PO BID Qty: 30 0RF aspirin 81 mg tablet 81 mg PO QDAY Qty: 30 0RF atorvastatin [Lipitor] 40 mg tablet 40 mg PO QDAY Qty: 30 0RF methylprednisolone [Medrol (Rob)] 4 mg tablets,dose pack 4 mg PO QDAY Qty: 21 0RF Continued docusate sodium 100 mg Capsule 100 mg PO QDAY ipratropium-albuterol 0.5 mg-3 mg(2.5 mg base)/3 mL Solution For Nebulization 3 ml INHALATION QID Qty: 180 0RF Changed furosemide 40 mg Tablet 60 mg PO QDAY 30 Days Qty: 45 0RF Discontinued atorvastatin 40 mg Tablet 20 mg PO QDAY topiramate 25 mg Tablet 25 mg PO BID aspirin [Aspir-81] 81 mg Tablet,Delayed Release (Dr/Ec) 81 mg PO QDAY spironolactone 25 mg Tablet 25 mg PO QDAY oxycodone-acetaminophen 5-325 mg Tablet 1 tab PO BID lisinopril 10 mg Tablet 10 mg PO QDAY cyclobenzaprine 5 mg tablet 5 mg PO BID Qty: 7 0RF Referrals: No Primary/Family,Physician [Primary Care Provider] Patient/Caregiver Discharge Instructions Education Materials: COPD: Chronic Coughing, COPD: Wheezing and Chest T ightness, Discharge Instructions: COPD Print Language: Icelandic Stand Alone Forms: Eileen Award Info., Patient Portal Info Letter Discharge Order Discharge Orders: Discharge (Routine); Ordered 06/08/25 Ordered By: Mali Steward Quality Discharge Quality Measures VTE prophylaxis
[2025-06-08] MEDS: SENNA/DOCUSATE SOD 1 TAB TABLET PO (09:40)
[2025-06-08] MEDS: APIXABAN 2.5 MG TABLET 5 MG PO (09:41)
[2025-06-08] MEDS: NIFEdipine XL 30 MG TABCR PO (09:42)
[2025-06-08] MEDS: METOPROLOL SUCCINATE XL 25 MG TABCR PO (09:43)
--- NOTE | 2025-06-08 10:17 | CHAP ---
Patient was visited by a Spiritual Care Volunteer on 06/07/2025 between 0900 and 1140 and received comfort, encouragement and/or prayer.
== END 2025-06-08 14:36 | disposition home or self-care (01) | DRG 190 ==
LOC: SERX 19:33 → SERHOLD 19:39 → S3SX 22:25
PROVIDERS: Admitting Provider Internal Medicine; Emergency Provider Emergency Medicine; Visit Provider Internal Medicine
DX: J44.1 Chronic obstructive pulmonary disease with (acute) exacerbation (principal); I50.23 Acute on chronic systolic (congestive) heart failure; J96.01 Acute respiratory failure with hypoxia; I13.0 Hypertensive heart and chronic kidney disease with heart failure and stage 1 through stage 4 chronic kidney disease, or unspecified chronic kidney disease; E87.20 Acidosis, unspecified; N17.9 Acute kidney failure, unspecified; R78.81 Bacteremia; I45.2 Bifascicular block; K59.00 Constipation, unspecified; R73.9 Hyperglycemia, unspecified; Z87.891 Personal history of nicotine dependence; N18.9 Chronic kidney disease, unspecified; Z86.711 Personal history of pulmonary embolism; Z79.01 Long term (current) use of anticoagulants; I16.0 Hypertensive urgency; I25.10 Atherosclerotic heart disease of native coronary artery without angina pectoris; Z95.5 Presence of coronary angioplasty implant and graft; Z88.0 Allergy status to penicillin; N27.1 Small kidney, bilateral; T38.0X5A Adverse effect of glucocorticoids and synthetic analogues, initial encounter; Z71.6 Tobacco abuse counseling; Z79.82 Long term (current) use of aspirin; Z86.718 Personal history of other venous thrombosis and embolism; Z86.73 Personal history of transient ischemic attack (TIA), and cerebral infarction without residual deficits; Z90.710 Acquired absence of both cervix and uterus
CPT/HCPCS: 36415; 36600; 71045; 76770; 80053; 80061; 80069; 80202; 81001; 82248; 82803; 83036; 83605; 83690; 83735; 83880; 84100; 84145; 84439; 84443; 84484; 85025; 85379; 85610; 85652; 85730; 86140; 87040; 87077; 87081; 87186; 87502; 87811; 90686; 93005; 93225; 93306; 94640; 94664; 96365; 96366; 96375; 96376; 99284; A9270; J0360; J0456; J0696; J1200; J1815; J1938; J2270; J2470; J2919; J3373; J3475; J7050; J7120; J7512; J9060